=== PATIENT | female | born 1995 | race African-American/Black ===

== ENCOUNTER 2018-05-09 20:12 | Inpatient (IN) ==
[2018-05-09] MEDS: Propofol 1000 mg/100 ml Inj 1,000 MG/100 ML BOTTLE IV.CONT PRN (20:29)
[2018-05-09] MEDS ORDERED: Propofol Inj 500 MG/50 ML Vial ONE (20:30)
[2018-05-09] MEDS ORDERED: Succinylcholine Inj 100 MG/5 ML Syringe IV.PUSH ONE (20:30)
[2018-05-09] MEDS ORDERED: Etomidate Inj 40 MG/20 ML Vial IV.PUSH ONE ×2 (20:30)
[2018-05-09] MEDS ORDERED: Succinylcholine Inj 200 MG/10 ML Vial ONE (20:30)
[2018-05-09] MEDS ORDERED: RESP: Racemic Epinephrine 2.25% 0.5 ML Neb NEB ONE (20:35)
[2018-05-09] MEDS ORDERED: MethylPREDNISolone Sod Succinate Inj 125 MG/2 ML Vial IV.PUSH ONE (20:36)
--- NOTE | 2018-05-09 20:44 | ED ---
HPI General Chief complaint: Altered Mental Status Stated complaint: AMS Time Seen by Provider: 05/09/18 20:24 History of Present Illness HPI narrative: The patient is a 22 something appearing year old female who presents to the [facility] emergency department with a history of being brought in by private vehicle through triage with agonal respirations. No history was able to be obtained from the patient. The patient arrives agonal and otherwise unresponsive. The patient's pupils are 4 mm bilaterally reactive to light. The patient's friend arrived back at the bedside. The patient's friend is the one that brought her to the emergency department. She reports that they were hanging out and the patient ingested a chocolate chip and almond cookie at approximately 7:15 PM. The patient had been well prior to this. Approximately 10 minutes into ingesting the cookie she began to have shortness of breath. She asked her friend what was in the cookie as she was concerned that she may be having an allergic reaction. She then began to use her rescue inhaler, however in spite of this she began to get worse regarding the shortness of breath. Ambulance services were called, however they did not seem to be coming quickly enough according to her friend, therefore she assisted her into the vehicle and brought her quickly to the emergency department. The patient's friend reports that she did take a Benadryl prior to arrival. Related Data Home Medications Medication Instructions Recorded Confirmed Unable to Obtain Home Meds 05/09/18 05/09/18 Allergies Allergy/AdvReac Type Severity Reaction Status Date / Time peanut Allergy Anaphylaxis Verified 05/09/18 21:54 Review of Systems ROS Unobtainable other (Unable to assess due to respiratory failure) [facility] Medical History Medical History Asthma (Acute) Medical history unknown (Acute) Social History Social History Substance History: Unable to Obtain Smoking Status: Current every day smoker How Often Do You Have a Drink Containing Alcohol: Unable to Obtain Recent Travel in [place] within the Last 8 Weeks: No Recent Out of Country Travel within the Last 8 Weeks: No Immunization History Tetanus Immunization: Unable to Assess Hx Influenza Vaccine This Season: Unable to Assess Exam Narrative Exam Narrative: General: The patient is a well-developed well-nourished female, arrives by stretcher from triage agonal respirations. The patient is incontinent of stool and urine on arrival. Head and Neck exam: Head is normocephalic atraumatic. Eyes: extraocular motion testing is unable to be accomplished as the patient arrives unresponsive, pupils are 4 mm and reactive to light bilaterally. Nose: Midline septum with pink mucous membranes Mouth: Dentition unremarkable with braces noted. Moist mucus membranes. Posterior oropharynx is not erythematous. No tonsillar hypertrophy. Uvula midline. Airway patent. Neck: No palpable lymphadenopathy. No nuchal rigidity. No thyromegaly. Cardiovascular: Sinus tachycardia in the 120s, no murmurs, gallops, or rubs. No pulse deficits to the extremities on simultaneous auscultation and palpation of her radial artery Lungs: Patient has occasional spontaneous respiratory effort noted. Decreased breath sounds in bilateral bases. No wheezes, rhonchi, or rales. Abdomen: Soft, without tenderness to palpation in all 4 quadrants of the abdomen. No guarding, rebound, or rigidity. Extremities: No clubbing, cyanosis, or edema. Neurologic Exam: The patient arrives with a GCS of 3. Eyes 1. Motor 1. Verbal- 1. Skin Exam: No rash noted. Intact skin that is warm and dry. Procedures Intubation Time Out Performed: No Sedative: etomidate Mg Given: 20 Paralytic: succinylcholine Mg Given: 100 Laryngoscope: Kylah ET Tube Size: 8 ET Tube Uncuffed: Yes Tube Secured Depth (cm): 24 Tube Secured Location: teeth Tube Placement Confirmation: visualized tube passing through cords, equal breath sounds bilaterally, no breath sounds over epigastrium and confirmation by capnometry Patient Tolerated Procedure: well Intubation Complications: none Course Reevaluation(s) Reevaluation #1: I was called by the patient's nurse regarding the patient sitting up in the bed and attempting to self extubate. At this point the patient's propofol had been titrated up to 50. The patient will be given Versed 2.5 mg IV. Reevaluation #2: The patient was reevaluated and was noted to have increased air movement bilaterally after racemic epinephrine and a DuoNeb was started. The patient now has expiratory wheezes audible bilaterally. Patient's family arrived at the bedside and do report a history of asthma. The patient's family arrived at the bedside and reported a past medical history of asthma. The patient will additionally be given Magnesium IV. Consultations Consultation #1: The patient's case including history, pertinent physical examination findings, and laboratory studies were discussed with Dr. Chairez. It was agreed that the patient would be admitted to the [facility] end [facility]. Initial Documented Vital Signs Pulse Rate 140 H 05/09/18 20:16 Respiratory Rate 4 L 05/09/18 20:16 Pulse Oximetry 50 L 05/09/18 20:16 Last Documented Vital Signs Temperature 97.8 F 05/09/18 21:01 Pulse Rate 127 H 05/09/18 22:07 Respiratory Rate 14 05/09/18 22:07 Blood Pressure 135/73 05/09/18 22:07 Pulse Oximetry 100 05/09/18 22:07 Critical Care Time Critical Care Time: Yes Total Critical Care Time: 32 Attestation: Aggregate critical care time was 32 minutes. Time to perform other separately billable procedures was not included in the critical care time. My time did not include minutes spent treating any other patients simultaneously or on activities that did not directly contribute to the patient's treatment. The services I provided to this patient were to treat and/or prevent clinically significant deterioration that could result in: Hypoxic brain injury, versus cardiovascular collapse I provided critical care services requiring my management, as noted below: Chart data review, documentation time, medication orders and management, vital sign assessments/reviewing monitor data, ordering and reviewing lab tests, ordering and interpreting/reviewing x-rays and diagnostic studies, care of the patient and discussion of the patient with the admitting physicians. Medical Decision Making MDM Narrative Medical decision making narrative: During the course of the patient's emergency department visit, the patient had IV access obtained. The patient was given a trial of Narcan 2 mg IV without any response. The patient's Accu-Chek was done and her blood sugar was noted to be 207. The patient was prepped for rapid sequence intubation with the assistance of respiratory therapy at the bedside. The patient was intubated by me on first pass. The patient was difficult to bag according to respiratory therapy. The patient had high-pitched airway sounds over the upper airway auscultated. There is a concern for possible allergic reaction, versus other upper airway constriction, therefore the patient was given Solu-Medrol 125 mg IV, racemic epinephrine nebulizer treatment 1, Duo nebs 3. The patient was started on a Diprivan drip for sedation. An OG tube and Elam catheter was placed to gravity. The patient was repeatedly reassessed. The patient had increased air movement noted after racemic epinephrine and 1 duoneb. The patient's case was discussed with Dr. Chairez. She did agree to admit the patient to the intensive care unit. Differential Diagnosis Differential Diagnosis: Asthma exacerbation, versus acute allergic reaction, versus pneumothorax, versus new onset congestive heart failure, versus pulmonary embolism POC Test Results POC Urine Results: Negative Lab Data Lab results reviewed: Yes I reviewed the patient's lab results. Result diagrams: 05/09/18 20:30 05/09/18 20:30 Lab Results 05/09/18 05/09/18 05/09/18 Range/Units 20:30 20:30 20:30 WBC (4.0-11.0) th/mm3 RBC (4.00-5.30) mil/mm3 Hgb (11.6-15.3) gm/dL Hct (35.0-46.0) % MCV (80.0-100.0) fL MCH (27.0-34.0) pg MCHC (32.0-36.0) % RDW (11.6-17.2) % Plt Count (150-450) th/mm3 MPV (7.0-11.0) fL Prelim Diff (Auto) Neut % (Auto) (16.0-70.0) % Lymph % (Auto) (9.0-44.0) % Sevier % (Auto) (0.0-8.0) % Eos % (Auto) (0.0-4.0) % Baso % (Auto) (0.0-2.0) % Neut # (Auto) (1.8-7.7) th/mm3 Lymph # (Auto) (1.0-4.8) th/mm3 Sevier # (Auto) (0.0-0.9) th/mm3 Eos # (Auto) (0.0-0.4) th/mm3 Baso # (Auto) (0.0-0.2) th/mm3 WBC Differential Seg Neuts % (Manual) (16-70) % Lymphocytes % (Manual) (9-44) % Monocytes % (Manual) (0-8) % Eosinophils % (Manual) (0-4) % Abs Neuts (Manual) (1.8-7.7) th/mm3 Differential Comment Platelet Estimate (Normal) Platelet Morphology (Normal) Acanthocytes (Spur) (None) PT (9.8-11.6) sec INR Ratio APTT (24.3-30.1) sec D-Dimer Quant (PE/DVT) Cancelled Puncture Site Patient Temperature O2 Saturation (90-100) % ABG pH (7.380-7.420) ABG pCO2 (38-42) mmHg ABG pO2 (61-120) mmHg ABG HCO3 (22-26) mmol/L ABG O2 Content (12.0-20.0) Vol % ABG Base Excess (-2-2) mmol/L ABG Methemoglobin (0-2) % Hernandez Test Hemoglobin (12.0-16.0) G/DL Carboxyhemoglobin (0-4) % O2 Delivery Device Vent Setting Inspired O2 % Critical Value Sodium (136-145) meq/L Potassium (3.5-5.1) meq/L Chloride (98-107) meq/L Carbon Dioxide (21.0-32.0) meq/L Anion Gap (5-15) meq/L BUN (7-18) mg/dL Creatinine (0.50-1.00) mg/dL Estimated GFR (>89) mL/min POC Glucose (68-110) mg/dl Random Glucose (74-106) mg/dL Calcium (8.5-10.1) mg/dL Magnesium (1.5-2.5) mg/dL Total Bilirubin (0.2-1.0) mg/dL AST (15-37) U/L ALT (10-53) U/L Alkaline Phosphatase (45-117) U/L Total Creatine Kinase (26-192) U/L CK-MB (CK-2) (0.5-3.6) ng/mL Troponin I (0.02-0.05) ng/mL B-Natriuretic Peptide 31 (0-100) pg/mL Total Protein (6.4-8.2) g/dL Albumin (3.4-5.0) g/dL Lipase 143 (73-393) U/L Urine Color (Yellw/Straw) Urine Clarity (Clear) Urine pH (5.0-8.5) Ur Specific Jones (1.002-1.035) Urine Protein (Neg-Trace) mg/dL Urine Glucose (UA) (Negative) mg/dL Urine Ketones (Negative) mg/dL Urine Occult Blood (Negative) Urine Nitrate (Negative) Urine Bilirubin (Negative) Urine Urobilinogen (Less than 2) mg/dL Ur Leukocyte Esterase (Negative) Urine RBC (0-3) /hpf Urine WBC (0-5) /hpf Ur Squamous Epith Cells (0-5) /hpf Amorphous Sediment (None) /hpf Urine Mucus (Occasional) /lpf Micro UA Comment Urine Culture Comments Urine Opiates Screen (Neg) Ur Barbiturates Screen (Neg) Ur Amphetamines Screen (Neg) U Benzodiazepines Scrn (Neg) Urine Cocaine Screen (Neg) U Cannabinoids Screen (Neg) Serum Alcohol Less than 3 (0-5) mg/dL 05/09/18 05/09/18 05/09/18 Range/Units 20:30 20:30 20:30 WBC 15.3 H (4.0-11.0) th/mm3 RBC 5.19 (4.00-5.30) mil/mm3 Hgb 13.7 (11.6-15.3) gm/dL Hct 44.3 (35.0-46.0) % MCV 85.4 (80.0-100.0) fL MCH 26.4 L (27.0-34.0) pg MCHC 30.9 L (32.0-36.0) % RDW 15.1 (11.6-17.2) % Plt Count 309 (150-450) th/mm3 MPV 10.3 (7.0-11.0) fL Prelim Diff (Auto) Slide review pending Neut % (Auto) 36.8 (16.0-70.0) % Lymph % (Auto) 51.8 H (9.0-44.0) % Sevier % (Auto) 7.1 (0.0-8.0) % Eos % (Auto) 3.8 (0.0-4.0) % Baso % (Auto) 0.5 (0.0-2.0) % Neut # (Auto) 5.7 (1.8-7.7) th/mm3 Lymph # (Auto) 7.9 H (1.0-4.8) th/mm3 Sevier # (Auto) 1.1 H (0.0-0.9) th/mm3 Eos # (Auto) 0.6 H (0.0-0.4) th/mm3 Baso # (Auto) 0.1 (0.0-0.2) th/mm3 WBC Differential Manual diff final Seg Neuts % (Manual) 32 (16-70) % Lymphocytes % (Manual) 53 H (9-44) % Monocytes % (Manual) 8 (0-8) % Eosinophils % (Manual) 7 H (0-4) % Abs Neuts (Manual) 4.9 (1.8-7.7) th/mm3 Differential Comment . Platelet Estimate Normal (Normal) Platelet Morphology Normal (Normal) Acanthocytes (Spur) Occ H (None) PT 10.4 (9.8-11.6) sec INR 1.0 Ratio APTT 26.6 (24.3-30.1) sec D-Dimer Quant (PE/DVT) 0.26 Puncture Site Patient Temperature O2 Saturation (90-100) % ABG pH (7.380-7.420) ABG pCO2 (38-42) mmHg ABG pO2 (61-120) mmHg ABG HCO3 (22-26) mmol/L ABG O2 Content (12.0-20.0) Vol % ABG Base Excess (-2-2) mmol/L ABG Methemoglobin (0-2) % Hernandez Test Hemoglobin (12.0-16.0) G/DL Carboxyhemoglobin (0-4) % O2 Delivery Device Vent Setting Inspired O2 % Critical Value Sodium 145 (136-145) meq/L Potassium 5.7 H (3.5-5.1) meq/L Chloride 112 H (98-107) meq/L Carbon Dioxide 19.0 L (21.0-32.0) meq/L Anion Gap 14 (5-15) meq/L BUN 13 (7-18) mg/dL Creatinine 1.16 H (0.50-1.00) mg/dL Estimated GFR 40 L (>89) mL/min POC Glucose (68-110) mg/dl Random Glucose 220 H (74-106) mg/dL Calcium 9.1 (8.5-10.1) mg/dL Magnesium 2.6 H (1.5-2.5) mg/dL Total Bilirubin 0.5 (0.2-1.0) mg/dL AST 11 L (15-37) U/L ALT 19 (10-53) U/L Alkaline Phosphatase 97 (45-117) U/L Total Creatine Kinase 143 (26-192) U/L CK-MB (CK-2) 0.8 (0.5-3.6) ng/mL Troponin I Less than 0.02 L (0.02-0.05) ng/mL B-Natriuretic Peptide (0-100) pg/mL Total Protein 7.4 (6.4-8.2) g/dL Albumin 3.5 (3.4-5.0) g/dL Lipase (73-393) U/L Urine Color (Yellw/Straw) Urine Clarity (Clear) Urine pH (5.0-8.5) Ur Specific Jones (1.002-1.035) Urine Protein (Neg-Trace) mg/dL Urine Glucose (UA) (Negative) mg/dL Urine Ketones (Negative) mg/dL Urine Occult Blood (Negative) Urine Nitrate (Negative) Urine Bilirubin (Negative) Urine Urobilinogen (Less than 2) mg/dL Ur Leukocyte Esterase (Negative) Urine RBC (0-3) /hpf Urine WBC (0-5) /hpf Ur Squamous Epith Cells (0-5) /hpf Amorphous Sediment (None) /hpf Urine Mucus (Occasional) /lpf Micro UA Comment Urine Culture Comments Urine Opiates Screen (Neg) Ur Barbiturates Screen (Neg) Ur Amphetamines Screen (Neg) U Benzodiazepines Scrn (Neg) Urine Cocaine Screen (Neg) U Cannabinoids Screen (Neg) Serum Alcohol (0-5) mg/dL 05/09/18 05/09/18 05/09/18 Range/Units 20:30 20:30 21:23 WBC (4.0-11.0) th/mm3 RBC (4.00-5.30) mil/mm3 Hgb (11.6-15.3) gm/dL Hct (35.0-46.0) % MCV (80.0-100.0) fL MCH (27.0-34.0) pg MCHC (32.0-36.0) % RDW (11.6-17.2) % Plt Count (150-450) th/mm3 MPV (7.0-11.0) fL Prelim Diff (Auto) Neut % (Auto) (16.0-70.0) % Lymph % (Auto) (9.0-44.0) % Sevier % (Auto) (0.0-8.0) % Eos % (Auto) (0.0-4.0) % Baso % (Auto) (0.0-2.0) % Neut # (Auto) (1.8-7.7) th/mm3 Lymph # (Auto) (1.0-4.8) th/mm3 Sevier # (Auto) (0.0-0.9) th/mm3 Eos # (Auto) (0.0-0.4) th/mm3 Baso # (Auto) (0.0-0.2) th/mm3 WBC Differential Seg Neuts % (Manual) (16-70) % Lymphocytes % (Manual) (9-44) % Monocytes % (Manual) (0-8) % Eosinophils % (Manual) (0-4) % Abs Neuts (Manual) (1.8-7.7) th/mm3 Differential Comment Platelet Estimate (Normal) Platelet Morphology (Normal) Acanthocytes (Spur) (None) PT (9.8-11.6) sec INR Ratio APTT (24.3-30.1) sec D-Dimer Quant (PE/DVT) Puncture Site Patient Temperature O2 Saturation (90-100) % ABG pH (7.380-7.420) ABG pCO2 (38-42) mmHg ABG pO2 (61-120) mmHg ABG HCO3 (22-26) mmol/L ABG O2 Content (12.0-20.0) Vol % ABG Base Excess (-2-2) mmol/L ABG Methemoglobin (0-2) % Hernandez Test Hemoglobin (12.0-16.0) G/DL Carboxyhemoglobin (0-4) % O2 Delivery Device Vent Setting Inspired O2 % Critical Value Sodium (136-145) meq/L Potassium (3.5-5.1) meq/L Chloride (98-107) meq/L Carbon Dioxide (21.0-32.0) meq/L Anion Gap (5-15) meq/L BUN (7-18) mg/dL Creatinine (0.50-1.00) mg/dL Estimated GFR (>89) mL/min POC Glucose 207 H (68-110) mg/dl Random Glucose (74-106) mg/dL Calcium (8.5-10.1) mg/dL Magnesium (1.5-2.5) mg/dL Total Bilirubin (0.2-1.0) mg/dL AST (15-37) U/L ALT (10-53) U/L Alkaline Phosphatase (45-117) U/L Total Creatine Kinase (26-192) U/L CK-MB (CK-2) (0.5-3.6) ng/mL Troponin I (0.02-0.05) ng/mL B-Natriuretic Peptide (0-100) pg/mL Total Protein (6.4-8.2) g/dL Albumin (3.4-5.0) g/dL Lipase (73-393) U/L Urine Color Yellow (Yellw/Straw) Urine Clarity Cloudy H (Clear) Urine pH 5.0 (5.0-8.5) Ur Specific Jones 1.014 (1.002-1.035) Urine Protein 500 or greater (Neg-Trace) mg/dL Urine Glucose (UA) 150 H (Negative) mg/dL Urine Ketones Negative (Negative) mg/dL Urine Occult Blood Moderate H (Negative) Urine Nitrate Negative (Negative) Urine Bilirubin Negative (Negative) Urine Urobilinogen Less than 2 (Less than 2) mg/dL Ur Leukocyte Esterase Negative (Negative) Urine RBC 44 H (0-3) /hpf Urine WBC 12 H (0-5) /hpf Ur Squamous Epith Cells 5 (0-5) /hpf Amorphous Sediment Moderate H (None) /hpf Urine Mucus Few H (Occasional) /lpf Micro UA Comment Cath-culture ind Urine Culture Comments Cath-cult indicated Urine Opiates Screen Neg (Neg) Ur Barbiturates Screen Neg (Neg) Ur Amphetamines Screen Neg (Neg) U Benzodiazepines Scrn Neg (Neg) Urine Cocaine Screen Neg (Neg) U Cannabinoids Screen Pos H (Neg) Serum Alcohol (0-5) mg/dL 05/09/18 Range/Units 21:45 WBC (4.0-11.0) th/mm3 RBC (4.00-5.30) mil/mm3 Hgb (11.6-15.3) gm/dL Hct (35.0-46.0) % MCV (80.0-100.0) fL MCH (27.0-34.0) pg MCHC (32.0-36.0) % RDW (11.6-17.2) % Plt Count (150-450) th/mm3 MPV (7.0-11.0) fL Prelim Diff (Auto) Neut % (Auto) (16.0-70.0) % Lymph % (Auto) (9.0-44.0) % Sevier % (Auto) (0.0-8.0) % Eos % (Auto) (0.0-4.0) % Baso % (Auto) (0.0-2.0) % Neut # (Auto) (1.8-7.7) th/mm3 Lymph # (Auto) (1.0-4.8) th/mm3 Sevier # (Auto) (0.0-0.9) th/mm3 Eos # (Auto) (0.0-0.4) th/mm3 Baso # (Auto) (0.0-0.2) th/mm3 WBC Differential Seg Neuts % (Manual) (16-70) % Lymphocytes % (Manual) (9-44) % Monocytes % (Manual) (0-8) % Eosinophils % (Manual) (0-4) % Abs Neuts (Manual) (1.8-7.7) th/mm3 Differential Comment Platelet Estimate (Normal) Platelet Morphology (Normal) Acanthocytes (Spur) (None) PT (9.8-11.6) sec INR Ratio APTT (24.3-30.1) sec D-Dimer Quant (PE/DVT) Puncture Site Right radial Patient Temperature 98.6 O2 Saturation 94 (90-100) % ABG pH 7.15 L* (7.380-7.420) ABG pCO2 63 H* (38-42) mmHg ABG pO2 144 H (61-120) mmHg ABG HCO3 21 L (22-26) mmol/L ABG O2 Content 16.3 (12.0-20.0) Vol % ABG Base Excess -6.3 L (-2-2) mmol/L ABG Methemoglobin 0.8 (0-2) % Hernandez Test Present Hemoglobin 12.1 (12.0-16.0) G/DL Carboxyhemoglobin 3.5 (0-4) % O2 Delivery Device Ventilator Vent Setting Inspired O2 100 % Critical Value Yes Sodium (136-145) meq/L Potassium (3.5-5.1) meq/L Chloride (98-107) meq/L Carbon Dioxide (21.0-32.0) meq/L Anion Gap (5-15) meq/L BUN (7-18) mg/dL Creatinine (0.50-1.00) mg/dL Estimated GFR (>89) mL/min POC Glucose (68-110) mg/dl Random Glucose (74-106) mg/dL Calcium (8.5-10.1) mg/dL Magnesium (1.5-2.5) mg/dL Total Bilirubin (0.2-1.0) mg/dL AST (15-37) U/L ALT (10-53) U/L Alkaline Phosphatase (45-117) U/L Total Creatine Kinase (26-192) U/L CK-MB (CK-2) (0.5-3.6) ng/mL Troponin I (0.02-0.05) ng/mL B-Natriuretic Peptide (0-100) pg/mL Total Protein (6.4-8.2) g/dL Albumin (3.4-5.0) g/dL Lipase (73-393) U/L Urine Color (Yellw/Straw) Urine Clarity (Clear) Urine pH (5.0-8.5) Ur Specific Jones (1.002-1.035) Urine Protein (Neg-Trace) mg/dL Urine Glucose (UA) (Negative) mg/dL Urine Ketones (Negative) mg/dL Urine Occult Blood (Negative) Urine Nitrate (Negative) Urine Bilirubin (Negative) Urine Urobilinogen (Less than 2) mg/dL Ur Leukocyte Esterase (Negative) Urine RBC (0-3) /hpf Urine WBC (0-5) /hpf Ur Squamous Epith Cells (0-5) /hpf Amorphous Sediment (None) /hpf Urine Mucus (Occasional) /lpf Micro UA Comment Urine Culture Comments Urine Opiates Screen (Neg) Ur Barbiturates Screen (Neg) Ur Amphetamines Screen (Neg) U Benzodiazepines Scrn (Neg) Urine Cocaine Screen (Neg) U Cannabinoids Screen (Neg) Serum Alcohol (0-5) mg/dL Imaging Data Radiologist's impression: Chest X-Ray 05/09/18 20:27 CONCLUSION: 1. ET tube in good position. 2. The lungs are clear. ECG Data Attestation: I personally reviewed and interpreted this ECG as follows: Interpretation: The patient had a EKG done on arrival. The patient's EKG reveals a sinus rhythm with occasional supraventricular premature complexes heart rate of 84, QRS duration 81 ms, QTC [address] segment elevation is noted. T waves are inverted in V1, aVL. Discharge Plan Discharge Disposition Patient Disposition: 30 Still Patient Discharge Details Diagnosis: Respiratory failure Physicians Team ED Provider: Danae Greene Primary Care Provider: UNKNOWN, Attending Provider: Lillie Chairez Discharge Interventions Interventions: Vital Signs Last Done: 05/09/18 20:27 Status ED Status: Admitted Patient
[2018-05-09] MEDS ORDERED: Midazolam Inj 5 MG/ML 1 ML Vial ONE (20:48)
[2018-05-09] MEDS ORDERED: Mag Sulf 1 gm/100 ml Premix 100 ML IV.SIG ONE (20:52)
[2018-05-09 20:55] LABS: Baso # (Auto) 0.1 th/mm3 (0.0-0.2); Baso % (Auto) 0.5 % (0.0-2.0); Eos # (Auto) 0.6 th/mm3 (0.0-0.4); Eos % (Auto) 3.8 % (0.0-4.0); Hematocrit 44.3 % (35.0-46.0); Hemoglobin 13.7 gm/dL (11.6-15.3); Lymph # (Auto) 7.9 th/mm3 (1.0-4.8); Lymph % (Auto) 51.8 % (9.0-44.0); Mean Corpuscular Hemoglobin 26.4 pg (27.0-34.0); Mean Corpuscular Volume 85.4 fL (80.0-100.0); Mean Platelet Volume 10.3 fL (7.0-11.0); Mono # (Auto) 1.1 th/mm3 (0.0-0.9); Mono % (Auto) 7.1 % (0.0-8.0); Neut # (Auto) 5.7 th/mm3 (1.8-7.7); Neut % (Auto) 36.8 % (16.0-70.0); Platelet Count 309 th/mm3 (150-450); Red Blood Count 5.19 mil/mm3 (4.00-5.30); Red Cell Distribution Width 15.1 % (11.6-17.2); White Blood Count 15.3 th/mm3 (4.0-11.0)
[2018-05-09] MEDS ORDERED: fentaNYL Citrate Inj 100 MCG/2 ML Ampul IV.PUSH ONE (21:01)
[2018-05-09] MEDS ORDERED: Midazolam 50 MG/50 ML Inj 50 MG/50 ML BAG IV.CONT PRN (21:07)
[2018-05-09 21:08] LABS: Albumin 3.5 g/dL (3.4-5.0); Amorphous Sediment,Urine Moderate /hpf; Anion Gap 14 meq/L (5-15); Aspartate Aminotransferase 11 U/L (15-37); Bilirubin,Urine Negative (Negative); Blood Urea Nitrogen 13 mg/dL (7-18); Calcium 9.1 mg/dL (8.5-10.1); Chloride 112 meq/L (98-107); Clarity,Urine Cloudy (Clear); Color,Urine Yellow (Yellw/Straw); Glomerular Filtration Rate 40 mL/min (>89); Glucose,Random 220 mg/dL (74-106); Glucose,Urine (UA) 150 mg/dL (Negative); Leukocyte Esterase,Urine Negative (Negative); Lipase 143 U/L (73-393); Magnesium 2.6 mg/dL (1.5-2.5); Mean Corpuscular HGB Conc 30.9 % (32.0-36.0); Mucus,Urine Few /lpf (Occasional); Nitrite,Urine Negative (Negative); Potassium 5.7 meq/L (3.5-5.1); Sodium 145 meq/L (136-145); Specific Gravity,Urine 1.014 (1.002-1.035); Squamous Epithelial Cell,Urine 5 /hpf (0-5)
[2018-05-09] MEDS ORDERED: fentaNYL 10 mcg/mL Premix Drip 2,500 MCG/250 ML BAG IV.SIG PRN (21:08)
[2018-05-09 21:10] LABS: Amphetamine Screen,Urine Neg (Neg); Barbiturate Screen,Urine Neg (Neg); Cannabinoid Screen,Urine Pos (Neg); Cocaine Screen,Urine Neg (Neg)
[2018-05-09 21:11] LABS: Opiate Screen,Urine Neg (Neg)
[2018-05-09] MEDS ORDERED: Dextrose 50% in Water 50 ML Vial IV.PUSH PRN (21:12)
--- NOTE | 2018-05-09 21:12 | XR ---
EXAM DATE: 05/09/2018 8:53 PM EDT AGE/SEX: 89 years / Female INDICATIONS: Respiratory arrest. Unresponsive. Intubation. CLINICAL DATA: This is the patient's initial encounter. Patient reports that signs and symptoms have been present for 1 day and indicates a pain score of Nonresponsive. MEDICAL/SURGICAL HISTORY: None. None. COMPARISON: No prior exams available for comparison. FINDINGS: Frontal view of the chest demonstrates ET tube tip well above the osman. Gastric tube tip projects w ithin the stomach. The lungs are symmetrically aerated. The heart is normal in size. Both hemidiaphra gms well delineated. CONCLUSION: 1. ET tube in good position. 2. The lungs are clear. Electronically signed by: Chucky Tolliver MD 05/09/2018 9:11 PM EDT
[2018-05-09 21:14] LABS: Alanine Aminotransferase 19 U/L (10-53); Alkaline Phosphatase 97 U/L (45-117); Creatine Kinase 143 U/L (26-192); Total Protein 7.4 g/dL (6.4-8.2)
[2018-05-09 21:17] LABS: Activated Partial Thrombo Time 26.6 sec (24.3-30.1); Prothrombin Time 10.4 sec (9.8-11.6)
--- NOTE | 2018-05-09 21:20 | P.HPCC ---
History of Present Illness History of Present Illness: History is limited because patient is intubated and not able to provide history. History provided by some friends that accompanied her to the hospital. 23-year-old -[place] female with past medical history of asthma, tobacco abuse, obesity, peanut allergy. She was with her friend and was eating a chocolate almond cookie and she began having difficulty breathing. Her friend states that she tried using her inhaler but it was out of medication. She then drank a lot of water and took a benadryl. She was in extremis and her friend put her in her truck she arrived by private vehicle with agonal respirations. She was difficult to bag and had very poor air movement bilaterally. She was intubated by Dr. Greene with 8.0 endotracheal tube. Vocal cords appeared normal with no edema. She was difficult to ventilate post intubation. She received racemic epi,, DuoNeb 3, Solu-Medrol 125 mg IV. - Diagnosis (1) Acute hypoxemic respiratory failure (2) Peanut allergy (3) Allergic to nuts (other than peanuts) (4) Anaphylaxis (5) Obesity (BMI 30-39.9) (6) Tobacco abuse (7) MELINA (acute kidney injury) (8) Encephalopathy acute (9) Marijuana abuse Inpatient Certification: I certify that the inpatient services were ordered in accordance with Medicare regulations governing the order. This includes certification that hospital inpatient services are reasonable and necessary and in the case of services not specified as inpatient-only under 42 CFR 419.22(n), that they are appropriately provided as inpatient services in accordance to with the 2-midnight benchmark under 43 CFR 412.3(e) Review of Systems unobtainable due to endotracheal tube Respiratory: Reports shortness of breath PMFSH - History History Provided By: Friend - Medical History Medical History: Medical History (Last Updated 05/10/18 @ 09:43 by Lillie Chairez MD) Medical history unknown (Acute) Asthma - Family History Family History: Family History (Last Updated 05/10/18 @ 09:43 by Lillie Chairez MD) Other No significant family history - Tobacco History Tobacco Use In Past 30 Days: Yes Smoking Status: Current every day smoker - Alcohol History How Often Do You Have a Drink Containing Alcohol: Unable to Obtain - Substance Use History Substance History: Active Abuse (MArijuana) - Travel History Recent Travel in the [place] Within the Last 8 Weeks: No Recent Travel Out of the Country Within the Last 8 Weeks: No - Immunization History Tetanus Immunization: Unable to Assess Hx Influenza Vaccine This Season: Unable to Assess Medications and Allergies Active Medications: Active Medications Albuterol (Duoneb Neb (Estephania)) 1 ampul NEB Q4HR NEB ESTEPHANIA Albuterol (Albuterol Neb (Prn)) 2.5 mg NEB Q2HR NEB PRN PRN Reason: WHEEZING Dextrose (D50w Vial) 50 ml IV.PUSH UNSCH PRN PRN Reason: PER HYPOGLYCEMIA PROTOCOL Diphenhydramine HCl (Benadryl Inj) 25 mg IV.PUSH Q6H ESTEPHANIA Glucagon (Glucagon Inj) 1 mg OTHER PRN PRN PRN Reason: for Hypoglycemia Protocol Propofol (Diprivan 1000 Mg/100 Ml Inj) 1,000 mg in 100 mls @ 2.994 mls/hr IV.CONT TITRATE PRN; Protocol PRN Reason: Per Protocol Last Titration: 05/09/18 20:50 Dose: 50 mcg/kg/min, 29.94 mls/hr Magnesium Sulfate/Dextrose (Magnesium Sulfate 1 Gm/D5w 100 Ml Premix) 100 mls @ 100 mls/hr IV.SIG ONCE ONE Stop: 05/09/18 21:51 Last Admin: 05/09/18 21:05 Dose: 100 mls/hr Midazolam HCl (Versed Inj) 50 mg in 50 mls @ 2 mls/hr IV.CONT TITRATE PRN; Protocol PRN Reason: Per Protocol Fentanyl (Fentanyl 10 Mcg/Ml Premix Drip) 2,500 mcg in 250 mls @ 5 mls/hr IV.SIG TITRATE PRN; Protocol PRN Reason: Per Protocol Insulin Aspart (Novolog Insulin Correctional Sugar Inj) 0 unit SQ Q4H ESTEPHANIA; Protocol Methylprednisolone Sodium Succinate (Solumedrol Inj) 60 mg IV.PUSH Q6H ESTEPHANIA Sodium Chloride (Ns Flush) 2 ml IV.FLUSH UNSCH PRN PRN Reason: FLUSH AFTER USING IV ACCESS Sodium Chloride (Ns Flush) 2 ml IV.FLUSH PRN PRN PRN Reason: FLUSH AFTER USING IV ACCESS Allergies Allergy/AdvReac Type Severity Reaction Status Date / Time almond Allergy Anaphylaxis Verified 05/10/18 10:05 peanut Allergy Anaphylaxis Verified 05/09/18 21:54 Home Medications Medication Instructions Recorded Confirmed Type Unable to Obtain Home Meds 05/09/18 05/09/18 History Results - Labs CBC & Chem 7: 05/12/18 07:39 05/12/18 07:39 Labs: Short CBC 05/09/18 Range/Units 20:30 WBC 15.3 H (4.0-11.0) th/mm3 Hgb 13.7 (11.6-15.3) gm/dL Hct 44.3 (35.0-46.0) % Plt Count 309 (150-450) th/mm3 BMP 05/09/18 20:30 Sodium 145 Potassium 5.7 H Chloride 112 H Carbon Dioxide 19.0 L BUN 13 Creatinine 1.16 H Calcium 9.1 Liver Function 05/09/18 Range/Units 20:30 AST 11 L (15-37) U/L Albumin 3.5 (3.4-5.0) g/dL Urine 05/09/18 Range/Units 20:30 Urine Color Yellow (Yellw/Straw) Urine Clarity Cloudy H (Clear) Urine pH 5.0 (5.0-8.5) Ur Specific [place] 1.014 (1.002-1.035) Urine Protein 500 or greater (Neg-Trace) mg/dL Urine Glucose (UA) 150 H (Negative) mg/dL - Imaging Impressions Chest X-Ray 05/09/18 20:27 CONCLUSION: 1. ET tube in good position. 2. The lungs are clear. Exam Vital signs: Vital Signs 05/09/18 20:16 05/09/18 20:20 05/09/18 20:27 Temperature Pulse Rate 140 H 90 75 Respiratory Rate 4 L 22 Blood Pressure 194/110 H 205/98 H Pulse Oximetry 50 L 100 100 05/09/18 20:34 05/09/18 20:36 05/09/18 20:46 Temperature Pulse Rate 120 H 127 H 150 H Respiratory Rate 30 H 24 Blood Pressure 170/84 H 184/80 H Pulse Oximetry 100 100 05/09/18 21:01 Temperature 97.8 F Pulse Rate 144 H Respiratory Rate 27 H Blood Pressure 111/53 L Pulse Oximetry 100 Intake & Output 05/09/18 05/09/18 05/10/18 06:59 18:59 06:59 Weight 99.79 kg Narrative: GENERAL: Overweight female who is orotracheally intubated. SKIN: Warm. She has diffuse coalescing hives over her upper chest, lower abdomen and thighs and left anterior shoulder HEAD: Atraumatic. Normocephalic. EYES: Pupils equal and round, 3 mm and reactive.. No scleral icterus. No injection or drainage. ENT: No nasal bleeding or discharge. Mucous membranes pink and moist. NECK: Trachea midline. No JVD. CARDIOVASCULAR: Tachycardic, sinus tach on monitor with rate in the 140s-150. No murmurs rubs or gallops. RESPIRATORY: Very poor air movement bilaterally with expiratory wheeze. No rales or rhonchi GASTROINTESTINAL: Abdomen soft, non-tender, nondistended. Bowel sounds present. MUSCULOSKELETAL: Extremities without clubbing, cyanosis, or edema. No obvious deformities. NEUROLOGICAL: Eyes open spontaneously, was sitting up in bed moving all extremities. Did not follow command, anxious Caprini VTE Risk Assessment Caprini VTE Risk Assessment: Moderate/High Risk (score >= 2) Caprini Risk Assessment Model: Point Value = 1 Point Value = 2 Point Value = 3 Point Value = 5 Age 41-60 Minor surgery BMI > 25 kg/m2 Swollen legs Varicose veins or History of unexplained or recurrent spontaneous Oral contraceptives or hormone replacement Sepsis (< 1 month) Serious lung disease, including pneumonia (< 1 month) Abnormal pulmonary function Acute myocardial infarction Congestive heart failure (< 1 month) History of inflammatory bowel disease Medical patient at bed rest Age 61-74 Arthroscopic surgery Major open surgery (> 45 min) Laparoscopic surgery (> 45 min) Malignancy Confined to bed (> 72 hours) Immobilizing plaster cast Central venous access Age >= 75 History of VTE Family history of VTE Factor V Leiden Prothrombin [id number] Lupus anticoagulant Anticardiolipin antibodies Elevated serum homocysteine Heparin-induced thrombocytopenia Other congenital or acquired thrombophilia Stroke (< 1 month) Elective arthroplasty Hip, pelvis, or leg fracture Acute spinal cord injury (< 1 month) Prophylaxis Regimen: Total Risk Factor Score Risk Level Prophylaxis Regimen 0-1 Low Early ambulation 2 Moderate Order ONE of the following: *Sequential Compression Device (SCD) *Heparin 5000 units SQ BID 3-4 Higher Order ONE of the following medications: *Heparin 5000 units SQ TID *Enoxaparin/Lovenox 40 mg SQ daily (WT < 150 kg, CrCl > 30 mL/min) *Enoxaparin/Lovenox 30 mg SQ daily (WT < 150 kg, CrCl > 10-29 mL/min) *Enoxaparin/Lovenox 30 mg SQ BID (WT < 150 kg, CrCl > 30 mL/min) AND/OR *Sequential Compression Device (SCD) 5 or more Highest Order ONE of the following medications: *Heparin 5000 units SQ TID (Preferred with Epidurals) *Enoxaparin/Lovenox 40 mg SQ daily (WT < 150 kg, CrCl > 30 mL/min) *Enoxaparin/Lovenox 30 mg SQ daily (WT < 150 kg, CrCl > 10-29 mL/min) *Enoxaparin/Lovenox 30 mg SQ BID (WT < 150 kg, CrCl > 30 mL/min) AND *Sequential Compression Device (SCD) Assessment and Plan - Problem List (1) Acute hypoxemic respiratory failure Code(s): J96.01 - Acute respiratory failure with hypoxia Status: Acute (2) Peanut allergy Code(s): Z91.010 - Allergy to peanuts Status: Chronic (3) Allergic to nuts (other than peanuts) Code(s): Z91.018 - Allergy to other foods Status: Chronic (4) Anaphylaxis Code(s): T78.2XXA - Anaphylactic shock, unspecified, initial encounter Status : Acute (5) Obesity (BMI 30-39.9) Code(s): E66.9 - Obesity, unspecified Status: Chronic (6) Tobacco abuse Code(s): Z72.0 - Tobacco use Status: Chronic (7) MELINA (acute kidney injury) Code(s): N17.9 - Acute kidney failure, unspecified Status: Acute (8) Encephalopathy acute Code(s): G93.40 - Encephalopathy, unspecified Status: Acute (9) Marijuana abuse Code(s): F12.10 - Cannabis abuse, uncomplicated Status: Chronic - Assessment and Plan Plan: NEURO: Altered mental status secondary to severe respiratory failure, improved CT brain negative Propofol (current literature suggests this is safe with peanut allergy)/versed/ fentanyl drips for sedation RASS -3 to -4. Nimbex to facilitate ventilator synchrony during severe bronchospasm. RESP: Acute hypoxemic and hypercapnic respiratory failure Anaphylaxis (cookie reportedly with almonds, not entirely clear if it contained peanuts also) Status asthmaticus triggered by anaphylaxis. Tobacco abuse Marijuana abuse Pressure control ventilation utilized overnight, transitioned to PRVC when bronchospasm was improved. Duoneb q4 hours, Albuterol q2, Magnesium, solumedrol 60 mg IV q6. Heart rate initially 120s then was 140-150s after racemic epi in the ED. Volume loaded with 2 L and then heart rate down to 110s and then gave Epi 0.3 mg IM. Benadryl 50 mg IV q6, Famotidine 20 mg IV q12. She is third spacing, re-evaluate airway prior to extubation. Will need epipen and box toe maker f/u at discharge. CV: Monitor hemodynamics Normotensive currently but will monitor closely. GI: Obesity Insert OG tube in place to low intermittent wall suction. FEN/RENAL: Acute kidney injury 2 L NS bolus, NS 84/hr. ID: Chest x-ray with no infiltrate. HEME: No acute hematologic issues ENDO: Acute hyperglycemia Monitor bedside glucose every 4 hours and administer low-dose insulin sliding scale as indicated. Titrate insulin dosing as appropriate while on steroids. PROPH: SCDs Lovenox 40 mg subcut daily for DVT prophylaxis. Famotidine for stress ulcer prophylaxis ACCESS: Peripheral IV providing adequate access at this time, will place CVL if needed. Full code I updated patient's aunt at bedside and she said she would disseminate information to the rest of the family. Patient is critically ill with severe bronchospasm and severe respiratory acidosis requiring multiple ventilator changes in order to avoid further deterioration of hemodynamics and from air trapping. CCT 78 minutes exclusive of separately billable procedures
[2018-05-09 21:21] LABS: D-Dimer 0.26 mg/L FEU (0.00-0.50)
[2018-05-09 21:26] LABS: Creatine Kinase MB 0.8 ng/mL (0.5-3.6)
[2018-05-09] MEDS: Insulin NovoLOG Aspart Correctional Sugar Inj SQ SCH (21:27)
[2018-05-09] MEDS ORDERED: Sod Chloride 0.9% Inj 1,000 ML IV.SIG ONE ×2 (21:47→23:06)
[2018-05-09] MEDS ORDERED: Acetaminophen 325 MG Tablet PO PRN (21:54)
[2018-05-09] MEDS ORDERED: Bisacodyl 10 MG Supp RECTAL PRN (21:54)
[2018-05-09] MEDS ORDERED: fentaNYL Citrate Inj 100 MCG/2 ML Ampul IV PUSH PRN (21:54)
[2018-05-09 22:02] LABS: Acanthocytes Occ; Eosinophils 7 % (0-4); Lymphocytes 53 % (9-44); Monocytes 8 % (0-8)
[2018-05-09 22:03] LABS: Platelet Estimate Normal (Normal); Platelet Morphology Normal (Normal)
[2018-05-09] MEDS: Enoxaparin Inj 40 MG/0.4 ML Syringe SQ SCH (22:15)
[2018-05-09] MEDS: Sod Chloride 0.9% Inj 1,000 ML IV.CONT SCH (22:15)
[2018-05-09 22:21] LABS: ABG Base Excess -6.3 mmol/L (-2-2); ABG PCO2 63 mmHg (38-42); ABG PO2 144 mmHg (61-120)
[2018-05-09] MEDS ORDERED: Cisatracurium Inj 100 MG in Sodium Chlor 0.9% Inj 240 ML IV.CONT PRN (23:05)
[2018-05-09] MEDS ORDERED: Cisatracurium Inj 20 MG/10 ML Vial IV.PUSH ONE (23:05)
--- NOTE | 2018-05-09 23:17 | CT ---
EXAM DATE: 05/09/2018 11:08 PM EDT AGE/SEX: 23 years / Female INDICATIONS: Found unresponsive. CLINICAL DATA: This is the patient's initial encounter. Patient reports that signs and symptoms have been present for 1 day and indicates a pain score of Nonresponsive. MEDICAL/SURGICAL HISTORY: Vertigo. None. RADIATION DOSE: 36.63 CTDI (mGy) COMPARISON: No prior exams available for comparison. TECHNIQUE: CT of the head without contrast. Using automated exposure control and adjustment of the mA and/or kV according to patient size, radiation dose was kept as low as reasonably achievable to ob tain optimal diagnostic quality images. DICOM format image data is available electronically for revi ew and comparison. FINDINGS: Cerebrum: The ventricles are normal for age. No evidence of midline shift, mass lesion, hemorrhage or acute infarction. No extraaxial fluid collections are seen. Posterior Fossa: The cerebellum and brainstem are intact. The 4th ventricle is midline. The cerebe llopontine angle is unremarkable. Extracranial: The visualized portion of the orbits is intact. Skull: The calvaria is intact. No evidence of skull fracture. CONCLUSION: 1. Negative noncontrast CT brain. . Electronically signed by: Chucky Tolliver MD 05/09/2018 11:15 PM EDT
[2018-05-10 00:10] LABS: ABG Base Excess -5.7 mmol/L (-2-2); ABG PCO2 37 mmHg (38-42); ABG PO2 415 mmHG (61-120)
[2018-05-10] MEDS: Oral Hygiene Kit OROPHARYNG SCH ×4 (00:58→18:15)
[2018-05-10] MEDS: Insulin NovoLOG Aspart Correctional Sugar Inj SQ SCH ×6 (01:16→20:38)
[2018-05-10] MEDS: MethylPREDNISolone Sod Succinate Inj 125 MG/2 ML Vial IV.PUSH SCH ×4 (02:14→20:36)
[2018-05-10] MEDS: Propofol 1000 mg/100 ml Inj 1,000 MG/100 ML BOTTLE IV.CONT PRN ×4 (02:15→13:37)
[2018-05-10] MEDS ORDERED: Chlorhexidine Gluconate 2% 1 Pack (2 Cloths) TOPICAL PRN (04:00)
[2018-05-10 04:12] LABS: Hematocrit 42.7 % (35.0-46.0); Hemoglobin 13.6 gm/dL (11.6-15.3); Lymph # (Auto) 0.3 th/mm3 (1.0-4.8); Lymph % (Auto) 2.2 % (9.0-44.0); Mean Corpuscular HGB Conc 31.9 % (32.0-36.0); Mean Corpuscular Hemoglobin 26.2 pg (27.0-34.0); Mean Corpuscular Volume 82.1 fL (80.0-100.0); Mean Platelet Volume 9.3 fL (7.0-11.0); Mono # (Auto) 0.3 th/mm3 (0.0-0.9); Mono % (Auto) 2.2 % (0.0-8.0); Neut # (Auto) 14.6 th/mm3 (1.8-7.7); Neut % (Auto) 95.6 % (16.0-70.0); Platelet Count 235 th/mm3 (150-450); Red Cell Distribution Width 14.8 % (11.6-17.2); White Blood Count 15.3 th/mm3 (4.0-11.0)
[2018-05-10 04:41] LABS: Alanine Aminotransferase 33 U/L (10-53); Albumin 3.8 g/dL (3.4-5.0); Alkaline Phosphatase 91 U/L (45-117); Anion Gap 10 meq/L (5-15); Aspartate Aminotransferase 47 U/L (15-37); Blood Urea Nitrogen 13 mg/dL (7-18); Calcium 7.9 mg/dL (8.5-10.1); Carbon Dioxide 20.9 meq/L (21.0-32.0); Chloride 114 meq/L (98-107); Glomerular Filtration Rate 80 mL/min (>89); Glucose,Random 145 mg/dL (74-106); Phosphorus 1.4 mg/dL (2.5-4.9); Potassium 3.5 meq/L (3.5-5.1); Sodium 145 meq/L (136-145); Total Protein 7.8 g/dL (6.4-8.2)
[2018-05-10 05:38] LABS: ABG Base Excess -7.4 mmol/L (-2-2); ABG PCO2 33 mmHg (38-42); ABG PO2 131 mmHG (61-120)
[2018-05-10] MEDS: Chlorhexidine Gluconate 2% 1 Pack (2 Cloths) TOPICAL SCH (05:48)
[2018-05-10] MEDS: Chlorhexidine 0.12% Oral Kit 15 ML UDC OROPHARYNG SCH ×2 (09:02→20:36)
[2018-05-10] MEDS: Senna/Docusate Sodium 8.6/50 MG Tablet PO SCH ×2 (09:05→20:37)
[2018-05-10] MEDS: Sod Chloride 0.9% Inj 1,000 ML IV.CONT SCH ×2 (11:55→23:05)
[2018-05-10] MEDS ORDERED: Potassium Chlor 20 mEq Premix 20 MEQ/100 ML PIGGYBACK IV.SIG ONE ×2 (18:00→21:00)
[2018-05-10] MEDS ORDERED: Sodium Phosphate Inj 30 MMOL in Sodium Chlor 0.9% Inj 250 ML IV.SIG ONE (18:00)
--- NOTE | 2018-05-10 19:58 | P.PNCC ---
Subjective Subjective Remarks/Hospital Course: Hospital Course: History is limited because patient is intubated and not able to provide history. History provided by some friends that accompanied her to the hospital. 23-year-old -[place] female with past medical history of asthma, tobacco abuse, obesity, peanut allergy. She was with her friend and was eating a chocolate almond cookie and she began having difficulty breathing. Her friend states that she tried using her inhaler but it was out of medication. She then drank a lot of water and took a benadryl. She was in extremis and her friend put her in her truck she arrived by private vehicle with agonal respirations. She was difficult to bag and had very poor air movement bilaterally. She was intubated by Dr. Greene with 8.0 endotracheal tube. Vocal cords appeared normal with no edema. She was difficult to ventilate post intubation. She received racemic epi,, DuoNeb 3, Solu-Medrol 125 mg IV. Subjective: 05/10: awake. alert. vigorous cuff leak. no edema now. clinically improving. passed SBT. Objective Vital Signs / I&O: Vital Signs 05/09/18 20:16 05/09/18 20:20 05/09/18 20:27 Temperature Pulse Rate 140 H 90 75 Respiratory Rate 4 L 22 22 Blood Pressure 194/110 H 205/98 H Pulse Oximetry 50 L 100 100 05/09/18 20:34 05/09/18 20:35 05/09/18 20:36 Temperature Pulse Rate 120 H 145 H 127 H Respiratory Rate 30 H 30 H Blood Pressure 170/84 H Pulse Oximetry 100 05/09/18 20:45 05/09/18 20:46 05/09/18 20:55 Temperature Pulse Rate 146 H 150 H 147 H Respiratory Rate 28 H 24 27 H Blood Pressure 184/80 H Pulse Oximetry 100 05/09/18 21:01 05/09/18 21:10 05/09/18 21:16 Temperature 36.6 C Pulse Rate 144 H 150 H 146 H Respiratory Rate 27 H 24 14 Blood Pressure 111/53 L 97/54 L Pulse Oximetry 100 100 05/09/18 21:21 05/09/18 21:50 05/09/18 21:52 Temperature Pulse Rate 149 H 140 H Respiratory Rate 14 14 14 Blood Pressure 127/58 L 132/66 Pulse Oximetry 95 99 07/22/18 22:07 05/09/18 23:15 05/09/18 23:22 Temperature Pulse Rate 127 H 128 H 128 H Respiratory Rate 14 22 20 Blood Pressure 135/73 129/71 Pulse Oximetry 100 100 05/09/18 23:30 05/09/18 23:45 05/10/18 00:00 Temperature 36.7 C Pulse Rate 119 H 116 H 11 L Respiratory Rate 15 14 14 Blood Pressure 117/72 118/72 117/69 Pulse Oximetry 100 100 100 05/10/18 00:15 05/10/18 00:30 05/10/18 00:45 Temperature Pulse Rate 120 H 115 H 110 H Respiratory Rate 14 14 14 Blood Pressure 118/71 123/75 119/70 Pulse Oximetry 100 100 100 05/10/18 01:00 05/10/18 01:15 05/10/18 01:30 Temperature Pulse Rate 107 H 104 H 104 H Respiratory Rate 14 14 14 Blood Pressure 115/67 116/66 109/64 Pulse Oximetry 100 100 100 05/10/18 01:45 05/10/18 02:00 05/10/18 02:15 Temperature Pulse Rate 104 H 102 H 100 H Respiratory Rate 14 14 14 Blood Pressure 109/63 112/66 113/66 Pulse Oximetry 100 100 100 05/10/18 02:30 05/10/18 02:45 05/10/18 02:54 Temperature Pulse Rate 101 H 100 H Respiratory Rate 14 14 Blood Pressure 113/67 121/72 Pulse Oximetry 100 100 100 05/10/18 03:00 05/10/18 03:15 05/10/18 03:30 Temperature Pulse Rate 101 H 103 H 104 H Respiratory Rate 14 14 14 Blood Pressure 116/68 114/69 113/67 Pulse Oximetry 100 100 99 05/10/18 03:45 05/10/18 04:00 05/10/18 04:15 Temperature 36.9 C Pulse Rate 107 H 107 H 107 H Respiratory Rate 14 14 14 Blood Pressure 120/75 122/75 123/76 Pulse Oximetry 100 100 100 05/10/18 04:16 05/10/18 04:30 05/10/18 04:45 Temperature Pulse Rate 109 H 105 H Respiratory Rate 14 14 14 Blood Pressure 125/71 113/70 Pulse Oximetry 100 100 100 05/10/18 05:00 05/10/18 05:15 05/10/18 05:30 Temperature Pulse Rate 104 H 104 H 105 H Respiratory Rate 14 14 14 Blood Pressure 116/71 115/66 120/69 Pulse Oximetry 100 100 99 05/10/18 05:45 05/10/18 06:00 05/10/18 06:15 Temperature Pulse Rate 104 H 117 H 114 H Respiratory Rate 14 14 14 Blood Pressure 117/65 120/70 120/70 Pulse Oximetry 99 99 98 05/10/18 07:43 05/10/18 07:48 05/10/18 08:00 Temperature 36.9 C Pulse Rate 107 H 105 H Respiratory Rate 15 15 17 Blood Pressure 110/60 Pulse Oximetry 97 98 05/10/18 11:27 05/10/18 11:58 05/10/18 12:00 Temperature 36.7 C Pulse Rate 97 H 106 H Respiratory Rate 14 34 H 14 Blood Pressure 109/58 L Pulse Oximetry 100 95 05/10/18 15:24 05/10/18 15:33 05/10/18 16:00 Temperature 36.6 C Pulse Rate 114 H 99 H Respiratory Rate 18 16 19 Blood Pressure 131/81 Pulse Oximetry 100 99 Intake & Output 05/10/18 05/10/18 05/11/18 06:59 18:59 06:59 Intake Total 2804 / 2804 795 / 795 Output Total 1110 / 1110 Balance 1694 / 1694 795 / 795 Weight 99.79 kg Intake: IV 2804 / 2804 795 / 795 Diprivan 1000 mg/100 ml Inj 1, 200 / 200 200 / 200 000 mg In 100 ml @ 5 MCG/KG/MIN 2.994 mls/hr IV.CONT TITRATE PRN Rx#:[id number] NS Inj 1,000 ML @ 84 mls/hr IV. 405 / 405 595 / 595 CONT .[id number] ESTEPHANIA Rx#:[id number] Magnesium Sulfate 1 gm/D5W 100 100 / 100 ml Premix 100 ML @ 100 mls/hr IV.SIG ONCE ONE Rx#:[id number] NS Inj 1,000 ML @ Wide Open IV. 1999 / 1999 SIG BOLUS ONE Rx#:[id number] Output: Urine Amount (Catheter) 510 / 510 Indwelling Urethral Catheter 510 / 510 Gastric Drainage 600 / 600 Orogastric Tube 600 / 600 Other: Weight On Admission 99.79 kg Result Diagrams: 05/10/18 03:56 05/10/18 03:56 Objective Remarks: GENERAL: Young female lying in bed, intubated but awake HEENT: Normocephalic. Atraumatic. Pupils equal, round, reactive, conjugate. Mucous membranes are moist. Perioral edema has improved. NECK: Trachea is midline. There is no JVD. CHEST: Intubated with an 8.0 endotracheal tube. Large cuff leak when cuff was deflated. PSV 5/5/40 percent. RSBI less than 40. CARDIOVASCULAR: Normal rate, regular rhythm. Sinus. ABDOMEN: Soft, nontender, nondistended. No guarding. MUSCULOSKELETAL: Pulses 2+. No peripheral edema. NEUROLOGICAL: RASS 0. Follows commands. No focal deficits. Assessment and Plan - Assessment and Plan Plan: Assessment: 23-year-old female status post anaphylactic shock now with resolving respiratory failure. Will wean to extubate and normalized. If she remains normal likely can transfer out of ICU. NEURO: Altered mental status secondary to severe respiratory failure, improved CT brain negative RESP: Acute hypoxemic and hypercapnic respiratory failure-improving Anaphylaxis (cookie reportedly with almonds, not entirely clear if it contained peanuts also) Status asthmaticus triggered by anaphylaxis. Tobacco abuse Marijuana abuse Wean to extubate Duoneb q4 hours, Albuterol q2, Magnesium, solumedrol 60 mg IV q6. Benadryl 50 mg IV q6, Famotidine 20 mg IV q12. Vigorous cuff leak. Will need epipen and distribution operations supervisor f/u at discharge. Wean oxygen by nasal cannula for goal SPO2 greater than 90% Out of bed Aggressive pulmonary toilet CV: Monitor hemodynamics Normotensive currently but will monitor closely. GI: Obesity Nursing bedside swallow eval and advance diet FEN/RENAL: Acute kidney injury-improving NS 84/hr. ID: Chest x-ray with no infiltrate. HEME: No acute hematologic issues ENDO: Acute hyperglycemia Monitor bedside glucose every 4 hours and administer low-dose insulin sliding scale as indicated. Titrate insulin dosing as appropriate while on steroids. PROPH: SCDs Lovenox 40 mg subcut daily for DVT prophylaxis. Famotidine for stress ulcer prophylaxis ACCESS: Peripheral IV providing adequate access at this time Full code
[2018-05-10] MEDS: Enoxaparin Inj 40 MG/0.4 ML Syringe SQ SCH (23:01)
--- NOTE | 2018-05-11 00:01 | ECG ---
Date Performed: 05/09/2018 Time Performed: 23:43:50 PTAGE: 23 years EKG: Sinus tachycardia. Anterior T wave changes are nonspecific Borderline ECG Compared to PREVIOUS TRACING , rate has increased DOCTOR: Ravi Llanos Interpretating Date/Time 05/10/2018 23:59:16
--- NOTE | 2018-05-11 00:18 | ECG ---
Date Performed: 05/09/2018 Time Performed: 20:25:56 PTAGE: 89 years EKG: Sinus rhythm WITH OCCASIONAL SUPRAVENTRICULAR PREMATURE COMPLEXES BORDERLINE ECG INTERPRETATION BASED ON A DEFAUL T AGE OF 42 YEARS NO PREVIOUS TRACING DOCTOR: Ravi Llanos Interpretating Date/Time 05/11/2018 00:17:36
[2018-05-11] MEDS: Oral Hygiene Kit OROPHARYNG SCH ×3 (04:43→16:19)
[2018-05-11] MEDS: Insulin NovoLOG Aspart Correctional Sugar Inj SQ SCH ×6 (04:43→21:55)
[2018-05-11] MEDS: MethylPREDNISolone Sod Succinate Inj 125 MG/2 ML Vial IV.PUSH SCH ×3 (04:44→21:41)
[2018-05-11] MEDS: Chlorhexidine Gluconate 2% 1 Pack (2 Cloths) TOPICAL SCH (04:44)
[2018-05-11 06:03] LABS: Hematocrit 37.6 % (35.0-46.0); Hemoglobin 12.2 gm/dL (11.6-15.3); Mean Corpuscular HGB Conc 32.4 % (32.0-36.0); Mean Corpuscular Hemoglobin 26.4 pg (27.0-34.0); Mean Corpuscular Volume 81.3 fL (80.0-100.0); Platelet Count 219 th/mm3 (150-450); Red Blood Count 4.63 mil/mm3 (4.00-5.30); Red Cell Distribution Width 14.9 % (11.6-17.2); White Blood Count 17.3 th/mm3 (4.0-11.0)
[2018-05-11 06:23] LABS: Anion Gap 7 meq/L (5-15); Blood Urea Nitrogen 8 mg/dL (7-18); Calcium 8.3 mg/dL (8.5-10.1); Chloride 114 meq/L (98-107); Glomerular Filtration Rate Greater Than 89 mL/min (>89); Glucose,Random 126 mg/dL (74-106); Potassium 3.9 meq/L (3.5-5.1); Sodium 145 meq/L (136-145)
--- NOTE | 2018-05-11 07:44 | P.PNCC ---
Subjective Subjective Remarks/Hospital Course: Hospital Course: History is limited because patient is intubated and not able to provide history. History provided by some friends that accompanied her to the hospital. 23-year-old -[place] female with past medical history of asthma, tobacco abuse, obesity, peanut allergy. She was with her friend and was eating a chocolate almond cookie and she began having difficulty breathing. Her friend states that she tried using her inhaler but it was out of medication. She then drank a lot of water and took a benadryl. She was in extremis and her friend put her in her truck she arrived by private vehicle with agonal respirations. She was difficult to bag and had very poor air movement bilaterally. She was intubated by Dr. Greene with 8.0 endotracheal tube. Vocal cords appeared normal with no edema. She was difficult to ventilate post intubation. She received racemic epi,, DuoNeb 3, Solu-Medrol 125 mg IV. Subjective: 05/10: awake. alert. vigorous cuff leak. no edema now. clinically improving. passed SBT. 05/11: Lying in bed no acute distress, exam reveals bilateral mild expiratory wheezing. Denies cough or pleuritic chest pain Objective Vital Signs / I&O: Vital Signs 05/10/18 07:43 05/10/18 07:48 05/10/18 08:00 Temperature 98.5 F Pulse Rate 107 H 105 H Respiratory Rate 15 15 17 Blood Pressure 110/60 Pulse Oximetry 97 98 05/10/18 09:00 05/10/18 11:27 05/10/18 11:58 Temperature Pulse Rate 82 97 H Respiratory Rate 14 34 H Blood Pressure Pulse Oximetry 100 05/10/18 12:00 05/10/18 12:15 05/10/18 12:30 Temperature 98.1 F Pulse Rate 106 H 100 H 96 H Respiratory Rate 14 14 14 Blood Pressure 106/55 L 111/58 L 112/60 Pulse Oximetry 95 96 96 05/10/18 12:45 05/10/18 13:00 05/10/18 13:15 Temperature Pulse Rate 96 H 94 H 93 H Respiratory Rate 14 14 14 Blood Pressure 113/61 109/58 L 110/60 Pulse Oximetry 96 95 96 05/10/18 13:30 05/10/18 13:45 05/10/18 14:00 Temperature Pulse Rate 89 98 H 93 H Respiratory Rate 14 14 14 Blood Pressure 112/61 106/55 L 107/57 L Pulse Oximetry 97 95 95 05/10/18 14:15 05/10/18 14:30 05/10/18 14:45 Temperature Pulse Rate 91 H 90 90 Respiratory Rate 14 14 14 Blood Pressure 107/56 L 107/57 L 111/57 L Pulse Oximetry 96 95 96 05/10/18 15:00 05/10/18 15:15 05/10/18 15:24 Temperature Pulse Rate 103 H 132 H Respiratory Rate 21 38 H 18 Blood Pressure 131/85 137/86 Pulse Oximetry 92 L 100 100 05/10/18 15:30 05/10/18 15:33 05/10/18 16:00 Temperature 97.8 F Pulse Rate 116 H 114 H 99 H Respiratory Rate 18 16 19 Blood Pressure 135/81 131/81 Pulse Oximetry 97 99 05/10/18 16:30 05/10/18 17:00 05/10/18 17:30 Temperature Pulse Rate 100 H 101 H 99 H Respiratory Rate 19 19 18 Blood Pressure 127/75 130/77 127/74 Pulse Oximetry 100 100 96 05/10/18 18:00 05/10/18 19:00 05/10/18 20:00 Temperature 99.0 F Pulse Rate 103 H 95 H 107 H Respiratory Rate 16 21 29 H Blood Pressure 127/78 127/77 136/86 Pulse Oximetry 98 95 97 05/10/18 20:22 05/10/18 21:00 05/10/18 22:00 Temperature Pulse Rate 99 H 111 H 95 H Respiratory Rate 15 26 H 21 Blood Pressure 139/84 124/78 Pulse Oximetry 96 96 05/10/18 23:00 05/10/18 23:02 05/11/18 00:00 Temperature 98.9 F Pulse Rate 98 H 97 H 101 H Respiratory Rate 22 22 25 H Blood Pressure 130/78 132/88 Pulse Oximetry 100 99 98 05/11/18 01:00 05/11/18 02:00 05/11/18 02:02 Temperature Pulse Rate 105 H 99 H 86 Respiratory Rate 21 21 19 Blood Pressure 102/65 101/58 L Pulse Oximetry 95 95 95 05/11/18 03:00 05/11/18 03:30 05/11/18 04:00 Temperature 98.8 F Pulse Rate 80 87 78 Respiratory Rate 20 16 18 Blood Pressure 122/77 123/75 Pulse Oximetry 95 95 05/11/18 05:00 05/11/18 06:00 05/11/18 07:00 Temperature Pulse Rate 79 79 82 Respiratory Rate 20 17 17 Blood Pressure 128/79 129/79 126/82 Pulse Oximetry 95 94 L 92 L Intake & Output 05/10/18 05/11/18 05/11/18 18:59 06:59 18:59 Intake Total 795 / 795 1710 / 1710 Output Total 1750 / 1750 1300 / 1300 Balance -955 / -955 410 / 410 Intake: IV 795 / 795 1460 / 1460 Nimbex Inj 100 MG In NS Inj 240 0 / 0 ML @ 1 MCG/KG/MIN 14.96 mls/hr IV.CONT TITRATE PRN Rx#: [id number] Diprivan 1000 mg/100 ml Inj 1, 200 / 200 0 / 0 000 mg In 100 ml @ 5 MCG/KG/MIN 2.994 mls/hr IV.CONT TITRATE PRN Rx#:[id number] NS Inj 1,000 ML @ 84 mls/hr IV. 595 / 595 1000 / 1000 CONT .[id number] [facility] Rx#:[id number] KCl 20 mEq Premix Inj 20 meq In 200 / 200 100 ml @ 50 mls/hr IV.SIG ONCE ONE Rx#:[id number] Sodium Phosphate Inj 30 MMOL In 260 / 260 NS Inj 250 ML @ 40 mls/hr IV. SIG ONCE ONE Rx#:[id number] Oral 250 / 250 Output: Urine 1100 / 1100 Urine Amount (Catheter) 1600 / 1600 200 / 200 Indwelling Urethral Catheter 1600 / 1600 200 / 200 Gastric Drainage 150 / 150 Orogastric Tube 150 / 150 Result Diagrams: 05/11/18 05:07 05/11/18 05:07 Objective Remarks: GENERAL: Young female lying in bed, alert awake HEENT: Normocephalic. Atraumatic. Pupils equal, round, reactive, conjugate. Mucous membranes are moist. NECK: Trachea is midline. There is no JVD. CHEST: Air entry equal bilaterally. Mild expiratory wheezes CARDIOVASCULAR: Normal rate, regular rhythm. Sinus. ABDOMEN: Soft, nontender, nondistended. MUSCULOSKELETAL: Pulses 2+. No peripheral edema. NEUROLOGICAL: Alert awake oriented. Follows commands. No focal deficits. Assessment and Plan - Assessment and Plan Plan: Assessment: 23-year-old female status post anaphylactic shock now with resolving respiratory failure. Will wean to extubate and normalized. If she remains normal likely can transfer out of ICU. NEURO: Altered mental status secondary to severe respiratory failure, resoled CT brain negative RESP: Acute hypoxemic and hypercapnic respiratory failure-improving Anaphylaxis (cookie reportedly with almonds, not entirely clear if it contained peanuts also) Status asthmaticus triggered by anaphylaxis. Tobacco abuse Marijuana abuse Extubated 05/10, tolerating well Duoneb q4 hours, Albuterol q2, Magnesium, solumedrol 60 mg IV q6-reduce to 60 q8 Start budesonide inhaled every 12. Benadryl 50 mg IV q6, Famotidine 20 mg IV q12. Will need epipen and psychology teacher f/u at discharge. Out of bed Aggressive pulmonary toilet Pulmonology consult CV: Monitor hemodynamics Normotensive currently but will monitor closely. GI: Obesity Regular diet FEN/RENAL: Acute kidney injury-improved DC NS 84/hr. ID: Chest x-ray with no infiltrate. HEME: No acute hematologic issues ENDO: Acute hyperglycemia Monitor bedside glucose every 4 hours and administer low-dose insulin sliding scale as indicated. Titrate insulin dosing as appropriate while on steroids. PROPH: SCDs Lovenox 40 mg subcut daily for DVT prophylaxis. Famotidine for stress ulcer prophylaxis ACCESS: Peripheral IV providing adequate access at this time Level 2. Transfer to Med/Surg Consult hospitalist to assume care in am
[2018-05-11] MEDS: Chlorhexidine 0.12% Oral Kit 15 ML UDC OROPHARYNG SCH ×2 (08:19→21:59)
[2018-05-11] MEDS: Senna/Docusate Sodium 8.6/50 MG Tablet PO SCH (08:20)
[2018-05-11] MEDS: Sod Chloride 0.9% Inj 1,000 ML IV.CONT SCH (11:58)
--- NOTE | 2018-05-11 16:13 | P.CONPSY ---
Provisional Diagnosis Admission Date: May 09, 2018 21:10 Butler I.: 1. Adjustment disorder, unspecified Butler II.: 1. Cluster B personality traits History of Present Illness Service: Psychiatry Consult date: 05/11/18 Requesting Physician: Chantale Gillespie Reason for Consult: "Depression, some suicidal thoughts, previous attempts" Primary Care Provider: UNKNOWN History of Present Illness: Ms. Tillman is a 23-year-old female with no reported previous psychiatric diagnoses who presented to the ED in respiratory distress after consuming cookie that contained almond. According to records, the patient had a previously identified peanut allergy, but it does not appear that almond allergy was known at the time. There is no indication that this ingestion was an act of intentional self-harm. Patient has been admitted to the [facility] for management of this issue. Psychiatry is consulted because the patient apparently disclosed to irrigation supervisor and then to primary team attending that she had had some suicidal thoughts. Reviewing the electronic medical record, it appears this is patient's first visit to [place]. Patient seen and examined. Chart reviewed. Case discussed with nursing staff. No reported suicidality or homicidality while the patient has been under observation in the [facility]. Patient's sister, Jose Carlos, is at the bedside and remains for the interview with patient's consent. On my examination today, the patient says that she feels somewhat distressed because "my parents are very controlling. They are never satisfied. I am considered the bad child. They don't like me to hang out with certain people." She reports that these castigations occasion transient feelings of dysphoria and, occasionally, some fleeting thoughts of self-harm. She denies any persistent low mood or associated symptoms consistent with a depressive episode. I can appreciate no signs or symptoms of hypomania or jojo. She denies any audiovisual hallucinations, and I can elicit no paranoia, no ideas of reference, no feelings of thought manipulation or other delusional material. She denies any trauma history. She denies significant anxiety except when she is feeling out of breath secondary to her asthma. She denies any suicidal or homicidal ideation, intent or plan on direct questioning and contracts for safety. She tells me "I do not have the intention of ending my life." She says "I just need someone to talk to." She is agreeable to an outpatient psychotherapy referral. Cluster B personality traits are noted. Remainder of the psychiatric ROS is negative. No physical complaints. With patient's permission, I spoke with sister Jose Carlos. Jose Carlos has no concerns about patient being a risk of harm to self/others at this point. She agrees that patient's main stressor is their parents and agrees with patient's assessment of parents' behavior. I have recommended to both patient and [place] that the home environment be secured of potential means of harm to self/others including but not limited to guns, knives and medications out of an abundance of caution. Past psychiatric history: The patient denies a history of psychiatric diagnosis. She denies a history of inpatient or outpatient psychiatric treatment. She does report that she made a gestural overdose on 10 ibuprofen about a year ago in the setting of conflict with her parents, but this never joe to medical attention. She denies any history of nonsuicidal self- injurious behavior. Family history: The patient denies any family history of serious mental illness or suicide. Chemical dependency history: The patient denies any abuse of drugs or alcohol although I do note patient's urine toxicology is positive for cannabinoids. Social history: The patient lives with her mother, father and sister. She is single with no children. She is high school educated and is presently in nursing school. She also works in her father's [employer]. She denies any history. Denies any legal history. Denies any access to guns or firearms. She is a [employer]. She denies any history of trauma. Review of Systems All other systems reviewed negative except as stated in HPI PMFSH - History History Provided By: Friend - Medical History Medical History: Medical History (Last Updated 05/10/18 @ 09:43 by Lillie Chairez MD) Medical history unknown (Acute) Asthma - Family History Family History: Family History (Last Updated 05/10/18 @ 09:43 by Lillie Chairez MD) Other No significant family history - Tobacco History Tobacco Use In Past 30 Days: Yes Smoking Status: Current every day smoker Tobacco Type: Cigarettes - Alcohol History How Often Do You Have a Drink Containing Alcohol: Unable to Obtain - Substance Use History Substance History: Active Abuse (MArijuana) - Travel History Recent Travel in the [place] Within the Last 8 Weeks: No Recent Travel Out of the Country Within the Last 8 Weeks: No - Immunization History Tetanus Immunization: Unable to Assess Hx Influenza Vaccine This Season: Unable to Assess Medications and Allergies Active Medications: Active Medications Acetaminophen (Tylenol) 650 mg PO Q6H PRN PRN Reason: temp >101 Al Hydroxide/Mg Hydroxide (Milk Of Magntrey Liq) 30 ml PO Q12H PRN PRN Reason: Mild Constipation Albuterol (Duoneb Neb (Van)) 1 ampul NEB Q4HR NEB [facility] Last Admin: 05/11/18 15:39 Dose: 1 ampul Albuterol (Albuterol Neb (Prn)) 2.5 mg NEB Q2HR NEB PRN PRN Reason: WHEEZING Bisacodyl (Dulcolax Supp) 10 mg RECTAL DAILY PRN PRN Reason: SEVERE CONSITIPATION Budesonide (Pulmocort Respule Neb) 0.5 mg NEB Q12HR [facility] Chlorhexidine Gluconate (Peridex 0.12% Oral Kit) 15 ml OROPHARYNG BID@0800, 2000 [facility] Last Admin: 05/11/18 08:19 Dose: Not Given Chlorhexidine Gluconate (Chlorhexidine 2% Cloth) 3 pack TOPICAL DAILY@0400 [facility] Stop: 05/15/18 03:59 Last Admin: 05/11/18 04:44 Dose: 3 pack Chlorhexidine Gluconate (Chlorhexidine 2% Cloth) 3 pack TOPICAL DAILY@0400 PRN PRN Reason: Extra cloth needed Stop: 05/15/18 03:59 Dextrose (D50w Vial) 50 ml IV.PUSH UNSCH PRN PRN Reason: PER HYPOGLYCEMIA PROTOCOL Diphenhydramine HCl (Benadryl Inj) 25 mg IV.PUSH Q6H [facility] Last Admin: 05/11/18 13:28 Dose: 25 mg Enoxaparin Sodium (Lovenox Inj) 40 mg SQ Q24H [facility] Last Admin: 05/10/18 23:01 Dose: 40 mg Glucagon (Glucagon Inj) 1 mg OTHER PRN PRN PRN Reason: for Hypoglycemia Protocol Fentanyl (Fentanyl 10 Mcg/Ml Premix Drip) 2,500 mcg in 250 mls @ 5 mls/hr IV.SIG TITRATE PRN; Protocol PRN Reason: Per Protocol Last Titration: 05/10/18 19:00 Dose: 0 mcg/hr, 0 mls/hr Sodium Chloride (Ns Inj) 1,000 mls @ 84 mls/hr IV.CONT .[id number] [facility] Last Admin: 05/11/18 11:58 Dose: 84 mls/hr Insulin Aspart (Novolog Insulin Correctional Sugar Inj) 0 unit SQ Q4H [facility]; Protocol Last Admin: 05/11/18 12:27 Dose: Not Given Lactulose (Lactulose Liq) 30 ml PO DAILY PRN PRN Reason: SEVERE CONSITIPATION Methylprednisolone Sodium Succinate (Solumedrol Inj) 60 mg IV.PUSH Q8H [facility] Last Admin: 05/11/18 12:20 Dose: 60 mg Senna/Docusate Sodium (Luz Maria-Colace) 1 tab PO BID [facility] Last Admin: 05/11/18 08:20 Dose: 1 tab Sennosides (Senokot) 17.2 mg PO Q12H PRN PRN Reason: Moderate Constipation Sodium Chloride (Ns Flush) 2 ml IV.FLUSH UNSCH PRN PRN Reason: FLUSH AFTER USING IV ACCESS Sodium Chloride (Ns Flush) 2 ml IV.FLUSH PRN PRN PRN Reason: FLUSH AFTER USING IV ACCESS Sodium Chloride (Ns Flush) 2 ml IV.FLUSH BID [facility] Last Admin: 05/11/18 08:20 Dose: 2 ml Sodium Chloride (Ns Flush) 2 ml IV.FLUSH PRN PRN PRN Reason: FLUSH AFTER USING IV ACCESS Allergies Allergy/AdvReac Type Severity Reaction Status Date / Time almond Allergy Anaphylaxis Verified 05/10/18 10:05 peanut Allergy Anaphylaxis Verified 05/09/18 21:54 Home Medications Medication Instructions Recorded Confirmed Type Unable to Obtain Home Meds 05/09/18 05/09/18 History Exam Vital signs: Vital Signs 05/10/18 16:30 05/10/18 17:00 05/10/18 17:30 Temperature Pulse Rate 100 H 101 H 99 H Respiratory Rate 19 19 18 Blood Pressure 127/75 130/77 127/74 Pulse Oximetry 100 100 96 05/10/18 18:00 05/10/18 19:00 05/10/18 20:00 Temperature 99.0 F Pulse Rate 103 H 95 H 107 H Respiratory Rate 16 21 29 H Blood Pressure 127/78 127/77 136/86 Pulse Oximetry 98 95 97 05/10/18 20:22 05/10/18 21:00 05/10/18 22:00 Temperature Pulse Rate 99 H 111 H 95 H Respiratory Rate 15 26 H 21 Blood Pressure 139/84 124/78 Pulse Oximetry 96 96 05/10/18 23:00 05/10/18 23:02 05/11/18 00:00 Temperature 98.9 F Pulse Rate 98 H 97 H 101 H Respiratory Rate 22 22 25 H Blood Pressure 130/78 132/88 Pulse Oximetry 100 99 98 05/11/18 01:00 05/11/18 02:00 05/11/18 02:02 Temperature Pulse Rate 105 H 99 H 86 Respiratory Rate 21 21 19 Blood Pressure 102/65 101/58 L Pulse Oximetry 95 95 95 05/11/18 03:00 05/11/18 03:30 05/11/18 04:00 Temperature 98.8 F Pulse Rate 80 87 78 Respiratory Rate 20 16 18 Blood Pressure 122/77 123/75 Pulse Oximetry 95 95 05/11/18 05:00 05/11/18 06:00 05/11/18 07:00 Temperature Pulse Rate 79 79 82 Respiratory Rate 20 17 17 Blood Pressure 128/79 129/79 126/82 Pulse Oximetry 95 94 L 92 L 05/11/18 08:00 05/11/18 08:24 05/11/18 09:00 Temperature 98.8 F Pulse Rate 79 76 90 Respiratory Rate 20 17 17 Blood Pressure 131/83 137/88 Pulse Oximetry 93 L 94 L 05/11/18 10:00 05/11/18 11:00 05/11/18 12:00 Temperature 98.3 F Pulse Rate 105 H 111 H 96 H Respiratory Rate 23 15 18 Blood Pressure 127/82 120/75 133/89 Pulse Oximetry 93 L 96 97 05/11/18 12:08 05/11/18 15:39 Temperature Pulse Rate 94 H 91 H Respiratory Rate 20 12 Blood Pressure Pulse Oximetry Intake & Output 05/10/18 05/11/18 05/11/18 18:59 06:59 18:59 Intake Total 795 / 795 1710 / 1710 1000 / 1000 Output Total 1750 / 1750 1300 / 1300 Balance -955 / -955 410 / 410 1000 / 1000 Intake: IV 795 / 795 1460 / 1460 1000 / 1000 Nimbex Inj 100 MG In NS Inj 240 0 / 0 ML @ 1 MCG/KG/MIN 14.96 mls/hr IV.CONT TITRATE PRN Rx#: [id number] Diprivan 1000 mg/100 ml Inj 1, 200 / 200 0 / 0 000 mg In 100 ml @ 5 MCG/KG/MIN 2.994 mls/hr IV.CONT TITRATE PRN Rx#:[id number] NS Inj 1,000 ML @ 84 mls/hr IV. 595 / 595 1000 / 1000 1000 / 1000 CONT .[id number] [facility] Rx#:[id number] KCl 20 mEq Premix Inj 20 meq In 200 / 200 100 ml @ 50 mls/hr IV.SIG ONCE ONE Rx#:[id number] Sodium Phosphate Inj 30 MMOL In 260 / 260 NS Inj 250 ML @ 40 mls/hr IV. SIG ONCE ONE Rx#:[id number] Oral 250 / 250 Output: Urine 1100 / 1100 Urine Amount (Catheter) 1600 / 1600 200 / 200 Indwelling Urethral Catheter 1600 / 1600 200 / 200 Gastric Drainage 150 / 150 Orogastric Tube 150 / 150 Narrative: Physical examination completed by primary team. On my examination today, the patient appears to be in no acute physical distress. No motor abnormalities noted. She is breathing easily at this time. Labs and vital signs reviewed: Laboratory Tests 05/09/18 05/09/18 05/10/18 20:30 20:30 03:56 WBC Hgb Plt Count Sodium Potassium Chloride Carbon Dioxide BUN Creatinine Estimated GFR Random Glucose AST 47 H ALT 33 Alkaline Phosphatase 91 Urine Opiates Screen Neg Ur Barbiturates Screen Neg Ur Amphetamines Screen Neg U Benzodiazepines Scrn Neg Urine Cocaine Screen Neg U Cannabinoids Screen Pos H Serum Alcohol Less than 3 05/11/18 05/11/18 05:07 05:07 WBC 17.3 H Hgb 12.2 Plt Count 219 Sodium 145 Potassium 3.9 Chloride 114 H Carbon Dioxide 24.0 BUN 8 Creatinine 0.76 Estimated GFR Greater than 89 Random Glucose 126 H AST ALT Alkaline Phosphatase Urine Opiates Screen Ur Barbiturates Screen Ur Amphetamines Screen U Benzodiazepines Scrn Urine Cocaine Screen U Cannabinoids Screen Serum Alcohol Mental Status Examination Appearance: Appropriate Consciousness: Alert Orientation: Person, Place (At least) Motor Activity: Other (No motor abnormalities noted) Speech: Unremarkable Language: Adequate Fund of Knowledge: Adequate Attention and Concentration: Adequate (No evidence of delirium) Memory: Unremarkable (Grossly intact on clinical exam) Mood: Appropriate Affect: Appropriate Thought Process & Associations: Intact, Logical, Goal directed, Linear Thought Content: Appropriate Hallucination Type: None Delusion Type: None Suicidal Ideation: No Suicidal Plan: No Suicidal Intention: No Homicidal Ideation: No Homicidal Plan: No Homicidal Intention: No Insight: Adequate Judgment: Adequate Assessment and Plan - Assessment (1) Adjustment disorder, unspecified Code(s): F43.20 - Adjustment disorder, unspecified Status: Acute - Plan Plan: 23-year-old female with psychiatric history as detailed above who is presently admitted to the [facility] following allergic reaction to a cookie containing almond. Psychiatry is consulted out of concern for possible suicidal ideation. On my examination today, the patient denies any suicidal or homicidal ideation, intent or plan. She contracts for safety. There is no evidence of severely unstable mental illness as defined under the [place] act in this patient at this time. There is no evidence of self-care deficit from mental illness. Suicide and violence risk assessment both suggest lower imminent risk from mental illness. We will endeavor to boost patient's protective factors by referring her for psychotherapeutic follow-up on discharge, and I have left a VM for the counselor traffic maintenance supervisor to send one of the counselors around to make appropriate referral. Patient does have cluster B personality traits that likely confer chronic but not acute or imminent risk for self harm via trait impulsivity and impaired distress tolerance; these personality traits would not be ameliorated ( and might even be worsened) by inpatient psychiatric admission and are best managed by psychotherapeutic techniques (i.e. DBT skills) on an outpatient basis. I have counseled the patient to go to the psychiatric emergency room for any concerning symptoms (including suicidal ideation) as part of a general safety plan. Case discussed with RN. Thank you very much for this consultation. I will be available to follow up as needed by primary team or per patient request. Please call or page [phone] with questions. Justification for Continued Inpatient Stay: Per primary team. Discharge Planning: The patient does not meet the [place] act criteria. She is not interested in psychiatric admission, nor does she meet criteria for inpatient psychiatric hospitalization at this time. (1) Adjustment disorder, unspecified Qualifiers: Adjustment disorder type: unspecified type Qualified Code(s): F43.20 - Adjustment disorder, unspecified
[2018-05-11] MEDS: Enoxaparin Inj 40 MG/0.4 ML Syringe SQ SCH (21:47)
--- NOTE | 2018-05-12 00:34 | MB ---
cc: Debi Ruiz MD DATE: 05/11/2018 REASON FOR CONSULTATION: Asthma and recent respiratory failure. HISTORY OF PRESENT ILLNESS: This is a 23-year-old lady who has had a previous history of asthma and obesity, was admitted via emergency room after eating chocolate and almond cookie, when she started to have difficulty breathing and choking and severe respiratory distress. The patient was using a Proventil and inhaler without much benefit and apparently she was brought to the emergency room with severe respiratory distress, at which time, she had to be intubated and placed on ventilator support. The patient was then transferred to the intensive care unit, was given IV epinephrine, Solu-Medrol and nebulized DuoNeb solution. She then improved and was weaned off the respirator and now extubated and is presently on nasal cannula at 2 liters. Denies any choking, but has some cough, wheezing and tightness in her upper chest area. She has not had any hemoptysis, fevers or chills. PAST MEDICAL HISTORY: Includes history of asthmatic attacks and she has had pneumonia in the past. PAST SURGICAL HISTORY: Denies significant history of surgery. SOCIAL AND HABITS: The patient has a history of smoking. Also uses marijuana regularly. Alcohol use unknown. FAMILY HISTORY: History of asthma on her father's side and history of hypertension. MEDICATIONS: List was reviewed from the chart. REVIEW OF SYSTEMS: The patient is overweight. She has postnasal drip, nasal congestion, wheezing, chest tightness. Denies abdominal pain, but has some reflux. No urinary symptoms. No leg or calf muscle pains. No depression. No anxiety. PHYSICAL EXAMINATION: GENERAL: This is an obese, young lady who is alert and pale, in no acute distress. VITAL SIGNS: Blood pressure 138/70, pulse 85, respirations 18, temperature 97.8. HEENT: Normocephalic. Pupils reactive and equal. Tongue is moist. Nasal mucosa injected. Throat was clear. NECK: Supple, no bruits or thyroid enlargement, no lymphadenopathy. CHEST: Distant breath sounds, with wheezes bilaterally, prolonged expirations. HEART: The heart sounds are irregular, S1 and S2. No murmur. No S3. ABDOMEN: Soft, benign. No masses, no organomegaly. EXTREMITIES: Varicosities. No edema, no calf tenderness. Reflexes are normal. There were no gross motor deficits. Cranial nerves grossly intact. SKIN: No lesions. ASSESSMENT: 1. Acute respiratory failure, resolved. 2. Status asthmaticus, resolved. 3. History of marijuana use. PLAN: The patient will be maintained on O2 at 2 liters and wean to room air. We will continue the Solu-Medrol at 60 mg IV q. 8 hours. A bedside pulmonary function study will be done with bronchodilators, DuoNeb neb q.i.d. added and Symbicort 160/4.5 mcg 2 puffs twice a day. Followup chest x-ray this week and the patient was advised to ambulate. Thank you for this consultation. VUlisses Ruiz MD [facility]/BENOIT , 11:57 PM , 12:32 AM
[2018-05-12] MEDS: Senna/Docusate Sodium 8.6/50 MG Tablet PO SCH ×2 (03:00→09:26)
[2018-05-12] MEDS: Budesonide-Formoterol 160/4.5 MCG 6 GM Inhaler INH SCH ×2 (03:02→09:27)
[2018-05-12] MEDS: Oral Hygiene Kit OROPHARYNG SCH ×2 (03:03→05:12)
[2018-05-12] MEDS: Sod Chloride 0.9% Inj 1,000 ML IV.CONT SCH ×2 (03:03→09:28)
[2018-05-12] MEDS: Insulin NovoLOG Aspart Correctional Sugar Inj SQ SCH ×3 (03:24→09:27)
[2018-05-12] MEDS: MethylPREDNISolone Sod Succinate Inj 125 MG/2 ML Vial IV.PUSH SCH (05:09)
[2018-05-12] MEDS: Chlorhexidine Gluconate 2% 1 Pack (2 Cloths) TOPICAL SCH (05:12)
[2018-05-12 08:57] LABS: Hematocrit 37.5 % (35.0-46.0); Hemoglobin 12.2 gm/dL (11.6-15.3); Mean Corpuscular HGB Conc 32.5 % (32.0-36.0); Mean Corpuscular Hemoglobin 26.1 pg (27.0-34.0); Mean Corpuscular Volume 80.1 fL (80.0-100.0); Mean Platelet Volume 9.8 fL (7.0-11.0); Platelet Count 229 th/mm3 (150-450); Red Blood Count 4.68 mil/mm3 (4.00-5.30); Red Cell Distribution Width 14.6 % (11.6-17.2); White Blood Count 12.4 th/mm3 (4.0-11.0)
[2018-05-12 09:21] LABS: Anion Gap 8 meq/L (5-15); Blood Urea Nitrogen 15 mg/dL (7-18); Calcium 8.5 mg/dL (8.5-10.1); Carbon Dioxide 24.1 meq/L (21.0-32.0); Chloride 111 meq/L (98-107); Glomerular Filtration Rate Greater Than 89 mL/min (>89); Glucose,Random 118 mg/dL (74-106); Potassium 3.8 meq/L (3.5-5.1); Sodium 143 meq/L (136-145)
[2018-05-12] MEDS: Chlorhexidine 0.12% Oral Kit 15 ML UDC OROPHARYNG SCH (09:26)
--- NOTE | 2018-05-12 10:20 | P.PN ---
Subjective Interval history: sergo feels great up and ambulating- no wheezes d/w her allergy and needs ff up history of HAD- on MDIs- non smoker states that she feels she is in a lot of pressure from her parents Physical Exam Vital signs: Vital Signs 05/11/18 11:00 05/11/18 12:00 05/11/18 12:08 Temperature 98.3 F Pulse Rate 111 H 96 H 94 H Respiratory Rate 15 18 20 Blood Pressure 120/75 133/89 Pulse Oximetry 96 97 05/11/18 13:00 05/11/18 14:00 05/11/18 15:00 Temperature Pulse Rate 104 H 115 H 91 H Respiratory Rate 17 22 22 Blood Pressure 120/76 110/60 132/89 Pulse Oximetry 96 98 96 05/11/18 15:39 05/11/18 16:00 05/11/18 18:00 Temperature 98.4 F 98.5 F Pulse Rate 91 H 98 H 82 Respiratory Rate 12 20 20 Blood Pressure 129/82 138/94 H Pulse Oximetry 95 99 05/11/18 20:13 05/11/18 21:45 05/12/18 00:44 Temperature 98.7 F Pulse Rate 82 104 H 87 Respiratory Rate 20 16 18 Blood Pressure 130/86 Pulse Oximetry 98 05/12/18 00:50 05/12/18 05:30 05/12/18 09:31 Temperature 98 F 98.6 F Pulse Rate 101 H 80 86 Respiratory Rate 19 16 20 Blood Pressure 122/72 115/67 Pulse Oximetry 99 99 Intake & Output 05/11/18 05/12/18 05/12/18 18:59 06:59 18:59 Intake Total 1000 / 1000 2200 / 2200 Output Total 700 / 700 Balance 300 / 300 2200 / 2200 Weight 100 kg Intake: IV 1000 / 1000 1000 / 1000 NS Inj 1,000 ML @ 84 mls/hr IV. 1000 / 1000 1000 / 1000 CONT .[id number] ESTEPHANIA Rx#:[id number] Oral 1200 / 1200 Output: Urine 700 / 700 Other: # Voids 3 # Bowel Movements 0 Narrative: awke and alert, n distress, good sats at room air anicteri no throat exudates lungs- clear, no wheezes regular rhythm abdomen soft, nontender extrmeities no edema - Urinary Catheter Management Indwelling Urethral Catheter Cath placed during this visit: yes, but has since been removed by the nurse Reason for continuing: Decision to DC catheter Insertion date: 05/09/18 Insertion time: 20:30 Removal date: 05/10/18 Removal time: 20:00 Results - Labs CBC & Chem 7: 05/12/18 07:39 05/12/18 07:39 Laboratory Results - last 24 hr 05/11/18 05/11/18 05/11/18 12:25 18:32 21:49 WBC RBC Hgb Hct MCV MCH MCHC RDW Plt Count MPV Sodium Potassium Chloride Carbon Dioxide Anion Gap BUN Creatinine Estimated GFR POC Glucose 137 H 135 H 278 H Random Glucose Calcium 05/12/18 05/12/18 05/12/18 05:09 07:39 07:39 WBC 12.4 H RBC 4.68 Hgb 12.2 Hct 37.5 MCV 80.1 MCH 26.1 L MCHC 32.5 RDW 14.6 Plt Count 229 MPV 9.8 Sodium 143 Potassium 3.8 Chloride 111 H Carbon Dioxide 24.1 Anion Gap 8 BUN 15 Creatinine 0.57 Estimated GFR Greater than 89 POC Glucose 116 H Random Glucose 118 H Calcium 8.5 05/12/18 09:17 WBC RBC Hgb Hct MCV MCH MCHC RDW Plt Count MPV Sodium Potassium Chloride Carbon Dioxide Anion Gap BUN Creatinine Estimated GFR POC Glucose 121 H Random Glucose Calcium Microbiology 05/09/18 20:30 Catheterized Urine Urine Culture - Final 50-100,000 cfu/mL mixed suhas (probable contaminants ) Assessment and Plan - Plan 23-year-old female status post anaphylactic shock now with resolving respiratory failure. Will wean to extubate and normalized. If she remains normal likely can transfer out of ICU. NEURO: Altered mental status secondary to severe respiratory failure, resoled CT brain negative RESP: Acute hypoxemic and hypercapnic respiratory failure-Resolved Anaphylaxis (cookie reportedly with almonds, not entirely clear if it contained peanuts also) Status asthmaticus triggered by anaphylaxis. Tobacco abuse Marijuana abuse Extubated 05/10, tolerating well Duoneb q4 hours, Albuterol q2, Magnesium, solumedrol 60 mg IV q6-reduce to 60 q8 - change to po Prednisone will give 5 days course budesonide inhaled every 12. Will need epipen and supply chain coordinator f/u at discharge. Out of bed Aggressive pulmonary toilet Pulmonology consulted Advise OP ff up and set up with a Allerologist for testing- she will find one in [place] CV: Monitor hemodynamics Normotensive currently but will monitor closely. GI: Obesity Regular diet FEN/RENAL: Acute kidney injury-improved- resolved ID: Chest x-ray with no infiltrate. 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 Titrate insulin dosing as appropriate while on steroids. PROPH: SCDs Lovenox 40 mg subcut daily for DVT prophylaxis. Famotidine for stress ulcer prophylaxis ACCESS: Peripheral IV providing adequate access at this time DC home today DIet as tolerated- avoid nuts activity as tolerated OP ff up with a PCP- in [place] with referral to an allergologist -Meds- Symbicort Epipen Predniisone 20 mg bid x 3 days course
[2018-05-12] MEDS ORDERED: predniSONE 20 MG Tablet PO SCH (11:30)
--- NOTE | 2018-05-12 13:09 | P.PN ---
Subjective Interval history: Better today and Off O2 . No wheezing. Cough is gone. Physical Exam Vital signs: Vital Signs 05/11/18 14:00 05/11/18 15:00 05/11/18 15:39 Temperature Pulse Rate 115 H 91 H 91 H Respiratory Rate 22 22 12 Blood Pressure 110/60 132/89 Pulse Oximetry 98 96 05/11/18 16:00 05/11/18 18:00 05/11/18 20:13 Temperature 98.4 F 98.5 F Pulse Rate 98 H 82 82 Respiratory Rate 20 20 20 Blood Pressure 129/82 138/94 H Pulse Oximetry 95 99 05/11/18 21:45 05/12/18 00:44 05/12/18 00:50 Temperature 98.7 F 98 F Pulse Rate 104 H 87 101 H Respiratory Rate 16 18 19 Blood Pressure 130/86 122/72 Pulse Oximetry 98 99 05/12/18 05:30 05/12/18 09:31 Temperature 98.6 F Pulse Rate 80 86 Respiratory Rate 16 20 Blood Pressure 115/67 Pulse Oximetry 99 Intake & Output 05/11/18 05/12/18 05/12/18 18:59 06:59 18:59 Intake Total 1000 / 1000 2200 / 2200 Output Total 700 / 700 Balance 300 / 300 2200 / 2200 Weight 100 kg Intake: IV 1000 / 1000 1000 / 1000 NS Inj 1,000 ML @ 84 mls/hr IV. 1000 / 1000 1000 / 1000 CONT .[id number] [facility] Rx#:[id number] Oral 1200 / 1200 Output: Urine 700 / 700 Other: # Voids 3 # Bowel Movements 0 Narrative: awake and alert, in no distress. Neck supple. no throat exudates lungs- clear, no wheezes regular rhythm no Murmur abdomen soft, nontender extremities no edema. No Neuro deficits. - Urinary Catheter Management Indwelling Urethral Catheter Cath placed during this visit: yes, but has since been removed by the nurse Reason for continuing: Decision to DC catheter Insertion date: 05/09/18 Insertion time: 20:30 Removal date: 05/10/18 Removal time: 20:00 Results - Labs CBC & Chem 7: 05/12/18 07:39 05/12/18 07:39 Laboratory Results - last 24 hr 05/11/18 05/11/18 05/12/18 18:32 21:49 05:09 WBC RBC Hgb Hct MCV MCH MCHC RDW Plt Count MPV Sodium Potassium Chloride Carbon Dioxide Anion Gap BUN Creatinine Estimated GFR POC Glucose 135 H 278 H 116 H Random Glucose Calcium 05/12/18 05/12/18 05/12/18 07:39 07:39 09:17 WBC 12.4 H RBC 4.68 Hgb 12.2 Hct 37.5 MCV 80.1 MCH 26.1 L MCHC 32.5 RDW 14.6 Plt Count 229 MPV 9.8 Sodium 143 Potassium 3.8 Chloride 111 H Carbon Dioxide 24.1 Anion Gap 8 BUN 15 Creatinine 0.57 Estimated GFR Greater than 89 POC Glucose 121 H Random Glucose 118 H Calcium 8.5 Microbiology 05/09/18 20:30 Catheterized Urine Urine Culture - Final 50-100,000 cfu/mL mixed suhas (probable contaminants ) Assessment and Plan - Plan 1. D/C O2 . 2. Cont Symbicort 160/4.5 mcg , 2puffs bid. 3, Ventolin HFA , 2 puffs qid prn. 4. Predniosne 20 mg daily x 3 5. Home today and OP F/U inn 2 weeks 6. D/W DR Babcock
== END 2018-05-12 12:14 | disposition home or self-care (01) ==
LOC: NEPE 20:12 → EDBD 21:10 → NEDA 21:10 → HIMC 23:10 → N05 05-11 16:32
PROVIDERS: ADMIT Internal Medicine; ATTEND Internal Medicine